=== PATIENT | male | born 1965 | race Hispanic/Latino ===

== ENCOUNTER 2017-05-29 19:54 | Inpatient (IN) | payer SELFPAY ==
[2017-05-29] MEDS ORDERED: Sodium Chloride 0.9% 1,000 ML IV STA (20:44)
[2017-05-29] MEDS ORDERED: Iohexol 240 (50 ml) PO ONE (20:45)
--- NOTE | 2017-05-29 20:48 | ED PDOC ---
HPI: Abdomen Time Seen by Provider: 05/29/17 20:40 Chief Complaint (Nursing): Abdominal Pain Chief Complaint (Provider): abdominal pain History Per: Patient History/Exam Limitations: no limitations Onset/Duration Of Symptoms: Days (6), Waxing/Waning Location Of Pain/Discomfort: RLQ, LLQ, Suprapubic Quality Of Discomfort: Sharp Associated Symptoms: Nausea, Vomiting Additional Complaint(s): 52 y/o male brought in by EMS for evaluation of intermittent lower abdominal pain x 6 days, worsening tonight. Patient notes diarrhea at onset of symptoms, which he thought was related to a stale sandwich he ate; but states symptoms improved over the weekend and then returned yesterday and tonight, with associated one vomiting episode prior to arrival. Denies fever, chest pain, shortness of breath, palpitations, urinary symptoms, changes in bowel movements. Past Medical History Reviewed: Historical Data, Nursing Documentation, Vital Signs Vital Signs: Last Vital Signs Temp 98.7 F 05/30/17 02:39 Pulse 104 H 05/30/17 02:39 Resp 20 05/30/17 02:39 BP 100/66 05/30/17 02:39 Pulse Ox 96 05/30/17 02:39 - Medical History PMH: HTN - Surgical History Surgical History: No Surg Hx - Family History Family History: States: No Known Family Hx - Social History Alcohol: > 2 Drinks/Day (5-6 beers daily) Drugs: Denies - Home Medications Home Medications: Ambulatory Orders Medication Instructions Recorded Allopurinol [Zyloprim] 100 mg PO DAILY 05/30/17 Lisinopril [Prinivil] mg PO DAILY 05/30/17 - Allergies Allergies/Adverse Reactions: Allergies Allergy/AdvReac Type Severity Reaction Status Date / Time No Known Allergies Allergy Verified 03/22/15 22:02 Review of Systems ROS Statement: Except As Marked, All Systems Reviewed And Found Negative Gastrointestinal: Positive for: Vomiting, Abdominal Pain Physical Exam - Reviewed Nursing Documentation Reviewed: Yes Vital Signs Reviewed: Yes - Physical Exam Appears: Positive for: Well, Non-toxic, Uncomfortable (shakey) Head Exam: Positive for: ATRAUMATIC, NORMAL INSPECTION, NORMOCEPHALIC Skin: Positive for: Normal Color Eye Exam: Positive for: Normal appearance ENT: Positive for: Normal ENT Inspection Cardiovascular/Chest: Positive for: Regular Rate, Rhythm Respiratory: Positive for: Normal Breath Sounds Gastrointestinal/Abdominal: Positive for: Bowel Sounds, Tenderness (rlq, suprapubic, llq), Distended Back: Positive for: Normal Inspection Extremity: Positive for: Normal ROM Neurologic/Psych: Positive for: Alert, Oriented - Laboratory Results Result Diagrams: 05/29/17 21:13 05/29/17 21:13 - ECG ECG: Positive for: Viewed By Me (reviewed by ED attending) ECG Rhythm: Positive for: Sinus Rhythm O2 Sat by Pulse Oximetry: 99 Pulse Ox Interpretation: Normal - Radiology X-Ray: Viewed By Me X-Ray Interpretation: No Acute Disease - Progress ED Course And Treament: labs, urine, CT abd/pelvis, IV fluids, IV zofran, IV morphine EXAM: CT Abdomen and Pelvis With Intravenous Contrast CLINICAL HISTORY: 52 years old, male; Pain; Abdominal pain; Generalized; Patient HX: See phys doc TECHNIQUE: Axial computed tomography images of the abdomen and pelvis with intravenous contrast. All CT scans at this facility use one or more dose reduction techniques, viz.: automated exposure control; ma/kV adjustment per patient size (including targeted exams where dose is matched to indication; i.e. head); or iterative reconstruction technique. Coronal and sagittal reformatted images were created and reviewed. CONTRAST: 100 mL of OMNI 300 administered intravenously. COMPARISON: No relevant prior studies available. FINDINGS: Lung bases: Mild atelectasis. ABDOMEN: Liver: Fatty infiltration. Gallbladder and bile ducts: No calcified stones. No ductal dilation. Pancreas: No ductal dilation. No mass. Spleen: No splenomegaly. Adrenals: No mass. Kidneys and ureters: No mass. No hydronephrosis. Stomach and bowel: Peripherally enhancing tubular structure along distal small bowel within lower abdomen/upper pelvis, roughly 5 cm in length. [id number] stranding within adjacent fat. Scattered diverticula within colon. No definite mural thickening. No obstruction. Appendix: Normal caliber. No inflammation. PELVIS: Bladder: Mild bladder wall thickening. Mild stranding within adjacent fat. Reproductive: Unremarkable as visualized. ABDOMEN and PELVIS: Intraperitoneal space: Trace free fluid within pelvis. No free air. Bones/joints: Mild degenerative changes of spine and hip joints. Degenerative changes of hip joints. No acute fracture. Soft tissues: Unremarkable. Vasculature: Unremarkable. No aneurysm. Lymph nodes: Several subcentimeter short axis mesenteric lymph nodes, nonspecific. IMPRESSION: 1. Findings compatible with Meckel's diverticulitis. 2. Probable cystitis, likely secondary to adjacent inflammation. 3. Incidental/non-acute findings are described above. IV cipro, IV flagyl dose ordered Case discussed with Dr. Singer, Hospitalist on-call, for admission. Case discussed with Dr. Ordaz, surgical assistant certified on-call, regarding consult Disposition - Clinical Impression Clinical Impression: Meckel's diverticulitis - Patient ED Disposition Is Patient to be Admitted: Yes - Disposition Disposition Time: 01:10 Condition: FAIR - Pt Status Changed To: Hospital Disposition Of: Inpatient - Admit Certification Admit to Inpatient:: After my assessment, the patient will require hospitalization for at least two midnights. This is because of the severity of symptoms shown, intensity of services needed, and/or the medical risk in this patient being treated as an outpatient. - POA Present On Arrival: None
[2017-05-29 21:25] LABS: BASO % 0.5 % (0.0-2.0); EOS % 0.2 % (0.0-4.0); HEMOGLOBIN 12.9 g/dL (12.0-18.0); LYMPH # 0.8 K/uL (1.0-4.3); LYMPH % 8.4 % (20.0-40.0); MEAN CELL VOLUME 91.6 fl (80.0-94.0); MEAN CORPUSCULAR HEMOGLOBIN 31.1 pg (27.0-31.0); MEAN PLATELET VOLUME 7.1 fl (7.2-11.7); MONO # 0.3 K/uL (0.0-0.8); MONO % 3.7 % (0.0-10.0); NEUT # 7.8 K/uL (1.8-7.0); NEUT % 87.2 % (50.0-75.0); PLATELET COUNT 264 K/uL (130-400); RBC 4.15 Mil/uL (4.40-5.90); RED CELL DISTRIBUTION WIDTH 12.2 % (11.5-14.5)
[2017-05-29 21:30] LABS: LIPASE 84 U/L (23-300)
[2017-05-29 21:55] LABS: BANDS 4 % (0-2); LYMPHOCYTE 7 % (20-50); MONOCYTE 1 % (0-10); NEUTROPHIL 88 % (42-75); PLATELET ESTIMATE NORMAL (NORMAL); TOTAL CELLS COUNTED 100
[2017-05-29] MEDS ORDERED: Iohexol 240 (50 ml) ONE (22:04)
[2017-05-29 22:42] LABS: ALBUMIN 4.3 g/dL (3.5-5.0); ALT/SGPT 33 U/L (21-72); AST/SGOT 50 U/L (17-59); BLOOD UREA NITROGEN 24 mg/dl (9-20); CALCIUM 9.7 mg/dL (8.4-10.2); GFR AFRICAN-AMERICAN > 60; GFR NON-AFRICAN AMERICAN > 60
[2017-05-29] MEDS ORDERED: Iohexol 300 100 ML IJ ONE (23:48)
--- NOTE | 2017-05-30 00:36 | CT ---
EXAM: CT Abdomen and Pelvis With Intravenous Contrast CLINICAL HISTORY: 52 years old, male; Pain; Abdominal pain; Generalized; Patient HX: See phys doc TECHNIQUE: Axial computed tomography images of the abdomen and pelvis with intravenous contrast. All CT scans at this facility use one or more dose reduction techniques, viz.: automated exposure control; ma/kV adjustment per patient size (including targeted exams where dose is matched to indication; i.e. head); or iterative reconstruction technique. Coronal and sagittal reformatted images were created and reviewed. CONTRAST: 100 mL of OMNI 300 administered intravenously. COMPARISON: No relevant prior studies available. FINDINGS: Lung bases: Mild atelectasis. ABDOMEN: Liver: Fatty infiltration. Gallbladder and bile ducts: No calcified stones. No ductal dilation. Pancreas: No ductal dilation. No mass. Spleen: No splenomegaly. Adrenals: No mass. Kidneys and ureters: No mass. No hydronephrosis. Stomach and bowel: Peripherally enhancing tubular structure along distal small bowel within lower abdomen/upper pelvis, roughly 5 cm in length. [id number] stranding within adjacent fat. Scattered diverticula within colon. No definite mural thickening. No obstruction. Appendix: Normal caliber. No inflammation. PELVIS: Bladder: Mild bladder wall thickening. Mild stranding within adjacent fat. Reproductive: Unremarkable as visualized. ABDOMEN and PELVIS: Intraperitoneal space: Trace free fluid within pelvis. No free air. Bones/joints: Mild degenerative changes of spine and hip joints. Degenerative changes of hip joints. No acute fracture. Soft tissues: Unremarkable. Vasculature: Unremarkable. No aneurysm. Lymph nodes: Several subcentimeter short axis mesenteric lymph nodes, nonspecific. IMPRESSION: 1. Findings compatible with Meckel's diverticulitis. 2. Probable cystitis, likely secondary to adjacent inflammation. 3. Incidental/non-acute findings are described above.
[2017-05-30] MEDS ORDERED: Ciprofloxacin 400mg/200ml D5W 400 MG/200 ML BAG IV ONE (01:09)
[2017-05-30] MEDS ORDERED: metroNIDAZOLE 500mg/100ml NS 100 ML IV STA (01:09)
--- NOTE | 2017-05-30 01:24 | CP.PCM.CON ---
<Terrance Ordaz - Last Filed: 05/30/17 02:08> History of Present Illness - History of Present Illness History of Present Illness: Surgery Consult note. Dr. Gordillo 52yo M with PMHx of HTN and Gout here for evaluation of abdominal pain. Patient report abdominal pain which started 5 days ago, described as crampy, sharp in quality, located initially in the LLQ now localized to the periumbilical and RLQ region. Symptoms associated with loose stools, dark black in color x7 episodes 5 days ago. Symptoms have been off and on and resolved on 2 days ago but returned this morning. Today, symptoms associated with dry heaving and 2 episodes of vomiting, non-bloody, non-bilious. He denies ever having similar symptoms prior to this episode. Denies any bloody bowel movements. No urinary complaints. Does report chills this morning, no fevers. No CP/SOB. No headaches. PMHx: HTN, Gout PSHx: none Family Hx: Father - DM, Social Hx: 5-6 drinks per day (beer/scotch); Rare cigar use (last use 8 months ago); Occasional Marijuana use NKDA Review of Systems - Review of Systems All systems: reviewed and no additional remarkable complaints except - Constitutional Constitutional: Chills. absent: Fever - Cardiovascular Cardiovascular: absent: Chest Pain, Dyspnea - Respiratory Respiratory: absent: Dyspnea - Gastrointestinal Gastrointestinal: Abdominal Pain, Belching, Bloating, Diarrhea, Nausea, Vomiting. absent: Hematemesis, Hematochezia - Genitourinary Genitourinary: absent: Difficulty Urinating, Dysuria Past Patient History - Past Social History Alcohol: > 2 Drinks/Day (5-6 beers daily) Drugs: Denies - CARDIAC Hx Hypertension: Yes - PSYCHIATRIC Hx Substance Use: No Meds Allergies/Adverse Reactions: Allergies Allergy/AdvReac Type Severity Reaction Status Date / Time No Known Allergies Allergy Verified 03/22/15 22:02 - Medications Medications: Current Medications Ciprofloxacin (Cipro 400mg/200ml Dsw) 400 mg in 200 mls @ 200 mls/hr IV ONCE ONE PRN Reason: Protocol Stop: 05/30/17 02:08 Metronidazole (Flagyl 500mg/100ml Ns) 100 mls @ 100 mls/hr IV STAT STA PRN Reason: Protocol Stop: 05/30/17 02:08 Physical Exam - Constitutional Appears: Well, Non-toxic, No Acute Distress - Head Exam Head Exam: ATRAUMATIC, NORMAL INSPECTION, NORMOCEPHALIC - Eye Exam Eye Exam: EOMI, Normal appearance - ENT Exam ENT Exam: Mucous Membranes Moist - Respiratory Exam Respiratory Exam: NORMAL BREATHING PATTERN. absent: Accessory Muscle Use, Wheezes, Respiratory Distress - Cardiovascular Exam Cardiovascular Exam: RRR. absent: JVD - GI/Abdominal Exam GI & Abdominal Exam: Distended. absent: Rebound Additional comments: Right lower quadrant tenderness to palpation. Periumbilical region, tenderness to palpation No palpable mass noted. Moderate distention. Rectal exam with no stool in rectal vault. No palpable nodularities. No gross blood noted. Hemoccult card sent to lab. - Extremities Exam Extremities exam: Positive for: normal inspection. Negative for: calf tenderness - Neurological Exam Neurological exam: Alert, Oriented x3 - Psychiatric Exam Psychiatric exam: Normal Affect, Normal Mood - Skin Skin Exam: Dry, Intact, Normal Color, Warm Results - Vital Signs Recent Vital Signs: Last Vital Signs Temp 98.0 F 05/29/17 19:56 Pulse 71 05/29/17 19:56 Resp 16 05/29/17 19:56 BP 122/76 05/29/17 19:56 Pulse Ox 99 05/30/17 00:45 - Labs Result Diagrams: 05/29/17 21:13 05/29/17 21:13 Labs: Laboratory Results - last 24 hr 05/29/17 05/29/17 05/29/17 21:13 21:13 21:13 WBC 9.0 RBC 4.15 L Hgb 12.9 Hct 38.1 MCV 91.6 MCH 31.1 H MCHC 34.0 RDW 12.2 Plt Count 264 MPV 7.1 L Neut % (Auto) 87.2 H Lymph % (Auto) 8.4 L [place] % (Auto) 3.7 Eos % (Auto) 0.2 Baso % (Auto) 0.5 Neut # (Auto) 7.8 H Lymph # (Auto) 0.8 L [place] # (Auto) 0.3 Eos # (Auto) 0.0 Baso # (Auto) 0.0 Neutrophils % (Manual) 88 H Band Neutrophils % 4 H Lymphocytes % (Manual) 7 L Monocytes % (Manual) 1 Platelet Estimate Normal RBC Morphology Normal Sodium 136 Potassium 5.1 H Chloride 95 L Carbon Dioxide 24 Anion Gap 22 H BUN 24 H Creatinine 1.1 Est GFR ( Amer) > 60 Est GFR (Non-Af Amer) > 60 Random Glucose 141 H Calcium 9.7 Total Bilirubin 1.3 AST 50 ALT 33 Alkaline Phosphatase 63 Total Protein 8.4 H Albumin 4.3 Globulin 4.2 H Albumin/Globulin Ratio 1.0 Lipase 84 Alcohol, Quantitative < 10 Assessment & Plan - Assessment and Plan (Free Text) Assessment: 52yo M with abdominal pain. Possible Meckel's Diverticulitis Plan: - NPO except meds - IVF - IV Abx - Pain management - Anti-emetics as needed - Strict I and O - f/u repeat AM labs - We will reevaluate patient in the AM and make further recommendations as we follow clinical status Further recs as per Dr. Duy Ordaz PGY1 surgery pager: [phone] <Gomez Maria - Last Filed: 05/30/17 09:37> Meds - Medications Medications: Current Medications Acetaminophen (Tylenol 325mg Tab) 650 mg PO Q6 PRN PRN Reason: Fever >100.4 F Sodium Chloride (Sodium Chloride 0.9%) 1,000 mls @ 125 mls/hr IV .Q8H ANDIE Stop: 05/31/17 02:03 Last Admin: 05/30/17 03:08 Dose: 125 mls/hr Piperacillin Sod/Tazobactam (Sod 3.375 gm/ Sodium Chloride) 100 mls @ 100 mls/ hr IVPB Q6 ANDIE PRN Reason: Protocol Last Admin: 05/30/17 04:40 Dose: 100 mls/hr Sodium Chloride (Sodium Chloride 0.9%) 1,000 mls @ 1,000 mls/hr IV .Q1H ANDIE Stop: 05/31/17 07:25 Last Admin: 05/30/17 08:37 Dose: 1,000 mls/hr Morphine Sulfate (Morphine) 4 mg IVP Q4 PRN PRN Reason: Pain, moderate (4-7) Ondansetron HCl (Zofran Inj) 4 mg IVP Q6 PRN PRN Reason: Nausea/Vomiting Results - Vital Signs Recent Vital Signs: Last Vital Signs Temp 98.4 F 05/30/17 08:17 Pulse 77 05/30/17 08:17 Resp 20 05/30/17 08:17 BP 101/67 05/30/17 08:17 Pulse Ox 97 05/30/17 08:17 - Labs Result Diagrams: 05/30/17 05:55 05/30/17 05:55 Labs: Laboratory Results - last 24 hr 05/29/17 05/29/17 05/29/17 21:13 21:13 21:13 WBC 9.0 RBC 4.15 L Hgb 12.9 Hct 38.1 MCV 91.6 MCH 31.1 H MCHC 34.0 RDW 12.2 Plt Count 264 MPV 7.1 L Neut % (Auto) 87.2 H Lymph % (Auto) 8.4 L [place] % (Auto) 3.7 Eos % (Auto) 0.2 Baso % (Auto) 0.5 Neut # (Auto) 7.8 H Lymph # (Auto) 0.8 L [place] # (Auto) 0.3 Eos # (Auto) 0.0 Baso # (Auto) 0.0 Neutrophils % (Manual) 88 H Band Neutrophils % 4 H Lymphocytes % (Manual) 7 L Monocytes % (Manual) 1 Platelet Estimate Normal RBC Morphology Normal PT INR APTT Sodium 136 Potassium 5.1 H Chloride 95 L Carbon Dioxide 24 Anion Gap 22 H BUN 24 H Creatinine 1.1 Est GFR ( Amer) > 60 Est GFR (Non-Af Amer) > 60 Random Glucose 141 H Lactic Acid Calcium 9.7 Total Bilirubin 1.3 AST 50 ALT 33 Alkaline Phosphatase 63 Total Protein 8.4 H Albumin 4.3 Globulin 4.2 H Albumin/Globulin Ratio 1.0 Lipase 84 Urine Color Urine Clarity Urine pH Ur Specific [place] Urine Protein Urine Glucose (UA) Urine Ketones Urine Blood Urine Nitrate Urine Bilirubin Urine Urobilinogen Ur Leukocyte Esterase Urine RBC (Auto) Urine Microscopic WBC Ur Squamous Epith Cells Stool Occult Blood Alcohol, Quantitative < 10 05/30/17 05/30/17 05/30/17 01:40 01:40 01:56 WBC RBC Hgb Hct MCV MCH MCHC RDW Plt Count MPV Neut % (Auto) Lymph % (Auto) [place] % (Auto) Eos % (Auto) Baso % (Auto) Neut # (Auto) Lymph # (Auto) [place] # (Auto) Eos # (Auto) Baso # (Auto) Neutrophils % (Manual) Band Neutrophils % Lymphocytes % (Manual) Monocytes % (Manual) Platelet Estimate RBC Morphology PT 13.0 INR 1.2 APTT 27.7 Sodium Potassium Chloride Carbon Dioxide Anion Gap BUN Creatinine Est GFR ( Amer) Est GFR (Non-Af Amer) Random Glucose Lactic Acid 1.5 Calcium Total Bilirubin AST ALT Alkaline Phosphatase Total Protein Albumin Globulin Albumin/Globulin Ratio Lipase Urine Color Urine Clarity Urine pH Ur Specific [place] Urine Protein Urine Glucose (UA) Urine Ketones Urine Blood Urine Nitrate Urine Bilirubin Urine Urobilinogen Ur Leukocyte Esterase Urine RBC (Auto) Urine Microscopic WBC Ur Squamous Epith Cells Stool Occult Blood Negative Alcohol, Quantitative 05/30/17 05/30/17 05/30/17 03:38 05:55 05:55 WBC 14.9 H D RBC 3.80 L Hgb 11.7 L Hct 35.3 MCV 92.7 MCH 30.6 MCHC 33.0 RDW 12.3 Plt Count 248 MPV Neut % (Auto) Lymph % (Auto) [place] % (Auto) Eos % (Auto) Baso % (Auto) Neut # (Auto) Lymph # (Auto) [place] # (Auto) Eos # (Auto) Baso # (Auto) Neutrophils % (Manual) Band Neutrophils % Lymphocytes % (Manual) Monocytes % (Manual) Platelet Estimate RBC Morphology PT INR APTT Sodium 136 Potassium 5.6 H Chloride 95 L Carbon Dioxide 23 Anion Gap 24 H BUN 27 H Creatinine 1.8 H Est GFR ( Amer) 48 Est GFR (Non-Af Amer) 40 Random Glucose 138 H Lactic Acid Calcium 8.9 Total Bilirubin 1.5 H AST 24 ALT 37 Alkaline Phosphatase 51 Total Protein 7.8 Albumin 3.9 Globulin 3.9 Albumin/Globulin Ratio 1.0 Lipase Urine Color Yellow Urine Clarity Slighty-cloudy Urine pH 5.0 Ur Specific [place] > 1.060 H Urine Protein Negative Urine Glucose (UA) Neg Urine Ketones Negative Urine Blood Negative Urine Nitrate Negative Urine Bilirubin Negative Urine Urobilinogen 0.2-1.0 Ur Leukocyte Esterase Neg Urine RBC (Auto) < 1 Urine Microscopic WBC < 1 Ur Squamous Epith Cells < 1 Stool Occult Blood Alcohol, Quantitative Assessment & Plan - Assessment and Plan (Free Text) Plan: OR 05/30 at 2pm SAMEER Rodriguez <Lopez Gordillo B - Last Filed: 05/31/17 15:22> Meds - Medications Medications: Current Medications Acetaminophen (Tylenol 325mg Tab) 650 mg PO Q6 PRN PRN Reason: Fever >100.4 F Lactated Ringer's (Lactated Ringer's) 1,000 mls @ 999 mls/hr IV .Q1H1M ANDIE Lactated Ringer's (Lactated Ringer's) 1,000 mls @ 150 mls/hr IV .Q6H40M ANDIE Sodium Chloride (Sodium Chloride 0.9%) 1,000 mls @ 150 mls/hr IV .Q6H40M ANDIE Stop: 05/31/17 20:10 Last Admin: 05/31/17 08:00 Dose: 150 mls/hr Piperacillin Sod/Tazobactam (Sod 3.375 gm/ Sodium Chloride) 100 mls @ 100 mls/ hr IVPB Q6H ANDIE PRN Reason: Protocol Last Admin: 05/31/17 12:30 Dose: 100 mls/hr Morphine Sulfate (Morphine) 4 mg IVP Q4 PRN PRN Reason: Pain, moderate (4-7) Last Admin: 05/31/17 12:30 Dose: 4 mg Ondansetron HCl (Zofran Inj) 4 mg IVP Q6 PRN PRN Reason: Nausea/Vomiting Results - Vital Signs Recent Vital Signs: Last Vital Signs Temp 99.6 F 05/31/17 08:34 Pulse 91 H 05/31/17 08:34 Resp 20 05/31/17 08:34 BP 124/80 05/31/17 08:34 Pulse Ox 99 05/31/17 08:34 - Labs Result Diagrams: 05/31/17 09:02 05/31/17 09:02 Labs: Laboratory Results - last 24 hr 05/31/17 05/31/17 09:02 09:02 WBC 11.1 H RBC 3.37 L Hgb 10.7 L Hct 31.2 L MCV 92.6 MCH 31.6 H MCHC 34.1 RDW 12.6 Plt Count 236 Sodium 144 Potassium 3.8 Chloride 106 Carbon Dioxide 23 Anion Gap 19 BUN 20 Creatinine 1.4 Est GFR ( Amer) > 60 Est GFR (Non-Af Amer) 53 Random Glucose 122 H Calcium 8.2 L Total Bilirubin 0.8 AST 40 ALT 34 Alkaline Phosphatase 40 Total Protein 6.5 Albumin 3.1 L D Globulin 3.4 Albumin/Globulin Ratio 0.9 L Attending/Attestation - Attestation I have personally seen and examined this patient.: Yes I have fully participated in the care of the patient.: Yes I have reviewed all pertinent clinical information: Yes Notes (Text): Pt was seen and examined at bedside Agree with above note and assessment Pt with lower abdominal pain and tenderness Abdomen distended Labs and radiology reviewed Ass: Meckel's diverticulitis with leucocytosis IV antibiotics NPO, IVF OR for Lap Diverticulectomy and possible bowel resection Consent Plan d.w pt in detail Risk and benefit explained in detail.
--- NOTE | 2017-05-30 01:36 | CP.PCM.HP ---
History of Present Illness - History of Present Illness History of Present Illness: PMD: Not on staf Chief complaint: Abdominal pain The patient was seen and examined in the ED HPI: 52 years old male with hx of HTN and Gout, comes with a 6 days hx of intermittent abdominal pain. The pain is located at the LLQ then radiates across the pelvis to the right lower quadrant, becoming continuous and more severe on the day of admission. It was not relieved with Ibuprofen and associated with nausea, vomiting once, rigors, lightheadeedness, dizziness, diarrhea at the inception but no dysuria PMH: HTN; Gout: Childhood Asghma PSH: Denies SH: No illegal drug, Smokes Cigars, no cigarettes, Drinks > 2 drinks /day; live alone; FH: States: No Known Family Hx Allergies: States NKDA Medication: Reviewed Present on Admission - Present on Admission Any Indicators Present on Admission: No History of DVT/PE: No History of Uncontrolled Diabetes: No Urinary Catheter: No Decubitus Ulcer Present: No Review of Systems - Constitutional Constitutional: Chills, Headache. absent: Fatigue, Fever, Malaise - EENT Eyes: Requires Corrective Lenses. absent: Diplopia, Floaters, Itchy Eyes, Loss of Peripheral Vision, Loss of Vision Ears: Dizziness. absent: Decreased Hearing, Ear Discharge, Tinnitus Nose/Mouth/Throat: absent: Epistaxis, Nasal Congestion, Nasal Discharge, Sinus Pain, Sinus Pressure - Cardiovascular Cardiovascular: absent: Chest Pain, Dyspnea, Edema - Respiratory Respiratory: Excessive Mucous Production. absent: Cough, Dyspnea - Gastrointestinal Gastrointestinal: Cramping, Diarrhea, Nausea, Vomiting - Genitourinary Genitourinary: absent: Flank Pain, Hematuria - Musculoskeletal Musculoskeletal: absent: Abnormal Gait, Back Pain, Muscle Weakness - Integumentary Integumentary: absent: Pruritus, Rash, Skin Ulcer, Sores, Striae, Swelling - Neurological Neurological: Abnormal Movements, Dizziness, Headaches. absent: Confusion - Psychiatric Psychiatric: absent: Anxiety, Depression, Panic Attacks - Endocrine Endocrine: absent: Palpitations, Polydipsia, Polyphagia, Polyuria - Hematologic/Lymphatic Hematologic: absent: Easy Bleeding, Easy Bruising Past Patient History - Past Medical History & Family History Past Medical History?: Yes - Past Social History Smoking Status: Heavy Smoker > 10 Cigarettes Daily Chewing Tobacco Use: No Cigar Use: No Alcohol: > 2 Drinks/Day (5-6 beers daily) Drugs: Denies, Inhalants Home Situation {Lives}: Alone - CARDIAC Hx Hypertension: Yes - PULMONARY Hx Respiratory Disorders: No - NEUROLOGICAL Hx Neurological Disorder: No - HEENT Hx HEENT Problems: No - HEMATOLOGICAL/ONCOLOGICAL Hx Blood Disorders: No - INTEGUMENTARY Hx Dermatological Problems: No - MUSCULOSKELETAL/RHEUMATOLOGICAL Hx Musculoskeletal Disorders: No - GASTROINTESTINAL Hx Gastrointestinal Disorders: No - GENITOURINARY/GYNECOLOGICAL Hx Genitourinary Disorders: No - PSYCHIATRIC Hx Psychophysiologic Disorder: No Hx Substance Use: No - ANESTHESIA Hx Anesthesia: No Meds Allergies/Adverse Reactions: Allergies Allergy/AdvReac Type Severity Reaction Status Date / Time No Known Allergies Allergy Verified 03/22/15 22:02 Physical Exam - Constitutional Appears: No Acute Distress - Head Exam Head Exam: ATRAUMATIC, NORMAL INSPECTION, NORMOCEPHALIC - Eye Exam Eye Exam: EOMI, Normal appearance Pupil Exam: NORMAL ACCOMODATION, PERRL - ENT Exam ENT Exam: Mucous Membranes Moist, Normal Exam - Neck Exam Neck exam: Positive for: Full Rom, Normal Inspection. Negative for: Lymphadenopathy, Tenderness - Respiratory Exam Respiratory Exam: Clear to Auscultation Bilateral. absent: Rales, Rhonchi, Wheezes - Cardiovascular Exam Cardiovascular Exam: REGULAR RHYTHM, RRR, +S1, +S2 - GI/Abdominal Exam Additional comments: Flat, Soft, +ve bowel sounds, Guarding moderate rebound tenderness - Rectal Exam Rectal Exam: Deferred - Extremities Exam Extremities exam: Positive for: full ROM, normal inspection. Negative for: calf tenderness, pedal edema, tenderness - Back Exam Back exam: NORMAL INSPECTION. absent: CVA tenderness (L), CVA tenderness (R) - Neurological Exam Neurological exam: Oriented x3, Reflexes Normal - Psychiatric Exam Psychiatric exam: Normal Affect, Normal Mood - Skin Skin Exam: Dry, Intact, Normal Color, Warm Results - Vital Signs Recent Vital Signs: Last Vital Signs Temp 98.0 F 05/29/17 19:56 Pulse 71 05/29/17 19:56 Resp 16 05/29/17 19:56 BP 122/76 05/29/17 19:56 Pulse Ox 99 05/30/17 00:45 - Labs Result Diagrams: 05/29/17 21:13 05/29/17 21:13 Labs: Laboratory Results - last 24 hr 05/29/17 05/29/17 05/29/17 21:13 21:13 21:13 WBC 9.0 RBC 4.15 L Hgb 12.9 Hct 38.1 MCV 91.6 MCH 31.1 H MCHC 34.0 RDW 12.2 Plt Count 264 MPV 7.1 L Neut % (Auto) 87.2 H Lymph % (Auto) 8.4 L [place] % (Auto) 3.7 Eos % (Auto) 0.2 Baso % (Auto) 0.5 Neut # (Auto) 7.8 H Lymph # (Auto) 0.8 L [place] # (Auto) 0.3 Eos # (Auto) 0.0 Baso # (Auto) 0.0 Neutrophils % (Manual) 88 H Band Neutrophils % 4 H Lymphocytes % (Manual) 7 L Monocytes % (Manual) 1 Platelet Estimate Normal RBC Morphology Normal Sodium 136 Potassium 5.1 H Chloride 95 L Carbon Dioxide 24 Anion Gap 22 H BUN 24 H Creatinine 1.1 Est GFR ( Amer) > 60 Est GFR (Non-Af Amer) > 60 Random Glucose 141 H Calcium 9.7 Total Bilirubin 1.3 AST 50 ALT 33 Alkaline Phosphatase 63 Total Protein 8.4 H Albumin 4.3 Globulin 4.2 H Albumin/Globulin Ratio 1.0 Lipase 84 Alcohol, Quantitative < 10 - Impressions Impression: NSR 96/min - Imaging and Cardiology CT scan - abdomen Status: Report reviewed by me Additional comment: EXAM: CT Abdomen and Pelvis With Intravenous Contrast FINDINGS: Lung bases: Mild atelectasis. ABDOMEN: Liver: Fatty infiltration. Gallbladder and bile ducts: No calcified stones. No ductal dilation. Pancreas: No ductal dilation. No mass. Spleen: No splenomegaly. Adrenals: No mass. Kidneys and ureters: No mass. No hydronephrosis. Stomach and bowel: Peripherally enhancing tubular structure along distal small bowel within lower abdomen/upper pelvis, roughly 5 cm in length. [id number]-af-[id number] stranding within adjacent fat. Scattered diverticula within colon. No definite mural thickening. No obstruction. Appendix: Normal caliber. No inflammation. PELVIS: Bladder: Mild bladder wall thickening. Mild stranding within adjacent fat. Reproductive: Unremarkable as visualized. ABDOMEN and PELVIS: Intraperitoneal space: Trace free fluid within pelvis. No free air. Bones/joints: Mild degenerative changes of spine and hip joints. Degenerative changes of hip joints. No acute fracture. Soft tissues: Unremarkable. Vasculature: Unremarkable. No aneurysm. Lymph nodes: Several subcentimeter short axis mesenteric lymph nodes, nonspecific. IMPRESSION: 1. Findings compatible with Meckel's diverticulitis. 2. Probable cystitis, likely secondary to adjacent inflammation. 3. Incidental/non-acute findings are described above. Chest x-ray Status: Image reviewed by me Additional comment: No infiltrate Increased cardiac silhouette Assessment & Plan - Assessment and Plan (Free Text) Assessment: #. Meckel's Diverticulitis #. Cystitis #. Dehydration #. Hyperkalemia Plan: 52 years old male with hx of HTN and Gout, comes with a 6 days hx of intermittent abdominal pain. The pain is located at the LLQ then radiates across the pelvis to the right lower quadrant, becoming continuous and more severe on the day of admission. #. Meckel's Diverticulitis - Consult Surgery Dr Gordillo - NPO - Zosyn - IV Fluid - Pain management #. Cystitis from the adjacent inflammation - Zosyn - Follow UA - IV Fluids - follow Renal labs #. Hyperkalemia - Follow electrolytes #. DVT prophylaxis with SCD #. Code Status: Full - Date & Time Date: 05/30/17 Time: 01:36
[2017-05-30 01:52] LABS: INR 1.2 (0.9-1.2); PARTIAL THROMBOPLASTIN TIME 27.7 Seconds (25.6-37.1)
[2017-05-30] MEDS ORDERED: Ciprofloxacin 400mg/200ml D5W 400 MG/200 ML BAG IVPB ONE (01:56)
[2017-05-30] MEDS: Sodium Chloride 0.9% 1,000 ML IV SCH ×3 (03:08→22:48)
[2017-05-30 03:44] LABS: SQUAMOUS EPITHIAL < 1 /hpf (0-5); URINE BILIRUBIN NEGATIVE (NEGATIVE); URINE BLOOD NEGATIVE (NEGATIVE); URINE CLARITY SLIGHTY-CLOUDY (Clear); URINE COLOR YELLOW (YELLOW); URINE GLUCOSE (UA) NEG (Normal); URINE LEUKOCYTE ESTERASE NEG Leu/uL (Negative); URINE PROTEIN NEGATIVE (NEGATIVE); URINE UROBILINOGEN 0.2-1.0 mg/dL (0.2-1.0)
[2017-05-30] MEDS: Piperacillin/Tazobact 3.375 GM in Sodium Chloride 0.9% 100 ML IVPB SCH ×3 (04:40→19:20)
[2017-05-30 06:39] LABS: HEMOGLOBIN 11.7 g/dL (12.0-18.0); MEAN CELL VOLUME 92.7 fl (80.0-94.0); MEAN CORPUSCULAR HEMOGLOBIN 30.6 pg (27.0-31.0); RBC 3.8 Mil/uL (4.40-5.90); RED CELL DISTRIBUTION WIDTH 12.3 % (11.5-14.5); WHITE BLOOD COUNT 14.9 K/uL (4.8-10.8)
[2017-05-30 06:53] LABS: ALBUMIN 3.9 g/dL (3.5-5.0); CALCIUM 8.9 mg/dL (8.4-10.2)
[2017-05-30] MEDS ORDERED: Insulin Regular 100 units/ml IV STA (07:26)
[2017-05-30] MEDS ORDERED: Dextrose 50% SYRINGE Inj (50 ml) IVP ONE (07:27)
[2017-05-30] MEDS ORDERED: Sodium Chloride 0.9% 1,000 ML IV SCH (07:30)
--- NOTE | 2017-05-30 07:40 | CARD ---
APPROVED REPORT EKG Measurement Heart [id number] <Conclusion> Sinus rhythm with occasional premature ventricular complexes Possible Left atrial enlargement Nonspecific T wave abnormality Abnormal ECG
[2017-05-30 11:07] LABS: GFR AFRICAN-AMERICAN > 60; GFR NON-AFRICAN AMERICAN 53
[2017-05-30 11:15] LABS: BLOOD UREA NITROGEN 24 mg/dl (9-20); CALCIUM 8.6 mg/dL (8.4-10.2)
--- NOTE | 2017-05-30 12:31 | RAD ---
HISTORY: admit COMPARISON: No prior. FINDINGS: LUNGS: No active pulmonary disease. PLEURA: No significant pleural effusion identified, no pneumothorax apparent. CARDIOVASCULAR: Normal. OSSEOUS STRUCTURES: No significant abnormalities. VISUALIZED UPPER ABDOMEN: Normal. OTHER FINDINGS: None. IMPRESSION: No active disease.
[2017-05-30] MEDS ORDERED: Succinylcholine 200 mg/10 ml Inj IV ONE (13:45)
[2017-05-30] MEDS ORDERED: Propofol 10 mg/ml Inj (20 ML) ONE ×2 (13:45→13:49)
[2017-05-30] MEDS ORDERED: Rocuronium 10 mg/ml (5 ml) ONE ×2 (13:45→17:09)
[2017-05-30] MEDS ORDERED: Lidocaine 4% (Laryng-O-Jet) Kit MM ONE (13:46)
[2017-05-30] MEDS ORDERED: Bupivacaine 0.5% Inj(30mL) ONE (14:12)
[2017-05-30] MEDS ORDERED: Lidocaine Hydrochloride 1% 20 ML ONE (14:12)
[2017-05-30] MEDS ORDERED: Midazolam 2 MG/2 ML VIAL ONE (14:28)
[2017-05-30] MEDS ORDERED: ceFAZolin IV 1 gm in Dextrose 2 GM/100 ML BAG IVPB ONE (14:35)
[2017-05-30] MEDS ORDERED: Lactated Ringer's 1,000 ML IV ONE ×6 (14:35→19:15)
[2017-05-30] MEDS ORDERED: Lidocaine 1% (10 ml) Inj IV ONE ×2 (14:55)
[2017-05-30] MEDS ORDERED: Bupivacaine 0.5% 50 ML IJ ONE ×2 (14:55)
[2017-05-30] MEDS ORDERED: Neostigmine 1:1000 (1 mg/ml) Inj ONE (16:08)
--- NOTE | 2017-05-30 18:40 | PCM.SURG1 ---
Surgeon's Initial Post Op Note - Surgeon's Notes Surgeon: Duy Choir Teacher: Crow, PGY2. Harmony, PGY1. Pre-Operative Diagnosis: Meckels diverticulitis Operative Findings: Perfortated meckels diverticulitis, fibrinous exudates Post-Operative Diagnosis: Perforated meckels diverticulitis Operation Performed: Laparoscopic small bowel resection, with anastomosis Specimen/Specimens Removed: Meckels diverticulum attached to portion of small bowel Estimated Blood Loss: EBL {In ML}: 20 Date of Surgery/Procedure: 05/30/17 Time of Surgery/Procedure: 15:00
[2017-05-30] MEDS ORDERED: Lactated Ringer's 1,000 ML IV SCH (18:45)
--- NOTE | 2017-05-30 21:29 | OP ---
PROCEDURE DATE: 05/30/2017 PREOPERATIVE DIAGNOSES: 1. Meckel's diverticulitis. 2. Abdominal distention and leukocytosis. POSTOPERATIVE DIAGNOSES: 1. Perforated phlegmonous Meckel's diverticulitis. 2. Extensive postinfectious and postinflammatory adhesion in the lower part of the abdomen. 3. Extensive interloop pelvic perihepatic and all over abdomen multiple abscesses. PROCEDURE DONE: 1. Laparoscopic Meckel's diverticulectomy. 2. Laparoscopic small bowel resection. 3. Laparoscopic extensive lysis of adhesion. 4. Laparoscopic drainage of pelvic perihepatic interloop multiple abscesses. SURGEON: Lopez Gordillo MD DRAPERY ROD ASSEMBLER: Giovanni Maria, PGY-2 resident and Woody Antunez, PGY-1 resident. TYPE OF ANESTHESIA: General endotracheal tube anesthesia. ESTIMATED BLOOD LOSS: Around 50 mL. DRAIN: A 19-[place] Ron drain was placed. COMPLICATIONS: None. PATHOLOGY: 1. Meckel diverticulum was sent to the pathology. 2. Part of the small bowel was sent to the pathology. 3. Pus was sent for the culture and sensitivity and gram stain. INTRAOPERATIVE FINDINGS: The patient had perforated phlegmonous Meckel's diverticulitis with extensive postinfectious and post-inflammatory adhesion of the lower abdomen. The patient had a multiple interloop abscesses, pelvic abscess, perihepatic collection and overall abdomen, the patient has a multiple abscesses and it took approximately 100 to 120 minute extra for the routine procedure. DESCRIPTION OF PROCEDURE: On intraoperative steps, this 52-year-old male, who was diagnosed with Meckel's diverticulitis and the patient had leukocytosis as well as abdominal distention and the patient was consented for laparoscopic Meckel diverticulectomy, possible bowel resection, possible ostomy, brought to the OR, placed supine on the operating table. After induction of the anesthesia, the NG tube and Vásquez catheter was placed, and the abdomen was prepped and draped in the usual sterile fashion. The supraumbilical transverse incision was made after incising the skin and subcutaneous tissue, the fascia was incised. Peritoneal cavity was entered, Pneumo was created. Another 5-mm port was placed in the left lower quadrant, 12-mm port was placed in left flank and another 5-mm port was placed in the right flank and after the grasper and dissector were introduced, the patient found to have extensive inflammation and multiple interloop abscesses as well as multiple adhesions in the lower abdomen. First, [id number]-bk-[id number] lysis of adhesion was done and pelvic as well as interloop abscess was drained. After extensive lysis of adhesion for approximately half an hour to 45 minutes, the Meckel diverticulum was identified and the dissection was carried down to identify the base of the Meckel's diverticulum and it appeared to be extremely adhered to the small bowel. Now, the small bowel very close to Meckel's diverticulum was completely resected, and it was sent off the table for the pathology. Now, the small bowel was exteriorized and part of the small bowel that was very close to the Meckel's diverticulum was also resected further on the both side. After that, the [id number]-dw-[id number] anastomosis was done and small bowel was placed back into the peritoneal cavity. Pneumo was recreated. Now approximately 3 to 4 L of fluid was used to complete the suction irrigation of the peritoneal cavity in the right upper quadrant, left upper quadrant, right flank, left flank, and the pelvic area. All the fluid was suctioned out. A 19-[place] Ron drain was placed. The specimen retrieval site was closed with #1 loop PDS continuous suture as well as #1 Prolene interrupted suture. Umbilical port site was closed in a 2 layers with 0 Vicryl interrupted suture, skin with 4-0 Monocryl, and dry sterile dressing was applied. The patient tolerated the procedure well. Count of instruments and gauze was correct. The drain was secured to the skin. The patient was extubated in the OR and sent to the Postanesthesia Care Unit in stable condition. Lopez Gordillo MD MARCIAL
[2017-05-31] MEDS: Piperacillin/Tazobact 3.375 GM in Sodium Chloride 0.9% 100 ML IVPB SCH ×4 (00:51→18:31)
[2017-05-31] MEDS: Sodium Chloride 0.9% 1,000 ML IV SCH ×3 (02:55→17:07)
[2017-05-31 09:18] LABS: HEMOGLOBIN 10.7 g/dL (12.0-18.0); MEAN CELL VOLUME 92.6 fl (80.0-94.0); MEAN CORPUSCULAR HEMOGLOBIN 31.6 pg (27.0-31.0); MEAN CORPUSCULAR HGB CONC 34.1 g/dL (33.0-37.0); RBC 3.37 Mil/uL (4.40-5.90); RED CELL DISTRIBUTION WIDTH 12.6 % (11.5-14.5); WHITE BLOOD COUNT 11.1 K/uL (4.8-10.8)
[2017-05-31 09:49] LABS: ALB/GLOB RATIO 0.9 (1.0-2.1); ALBUMIN 3.1 g/dL (3.5-5.0); ALT/SGPT 34 U/L (21-72); AST/SGOT 40 U/L (17-59); BLOOD UREA NITROGEN 20 mg/dl (9-20); CALCIUM 8.2 mg/dL (8.4-10.2); GFR AFRICAN-AMERICAN > 60; GFR NON-AFRICAN AMERICAN 53
--- NOTE | 2017-05-31 17:59 | CP.PCM.PN ---
Subjective - Date & Time of Evaluation Date of Evaluation: 05/31/17 Time of Evaluation: 10:00 - Subjective Subjective: General Surgery Progress Note- Dr. Gordillo 52 y.o male POD#1 laparoscopic small bowel resection with anastomosis secondary to perforated Meckel's diverticulitis. Patient seen resting comfortably in bed, in NAD, and AA0x3. Patient denies acute overnight events. Patient reports pain and tenderness to the abdomen, well controlled with medication. Denies n/v/sob/ cp/chills or fever Objective - Vital Signs/Intake and Output Vital Signs (last 24 hours): Temp Pulse Resp BP Pulse Ox 98.2 F 123 H 20 123/88 94 L 05/31/17 16:33 05/31/17 16:33 05/31/17 16:33 05/31/17 16:33 05/31/17 16:33 Intake and Output: 05/31/17 05/31/17 06:59 18:59 Intake Total 700 Output Total 405 Balance 295 - Medications Medications: Current Medications Acetaminophen (Tylenol 325mg Tab) 650 mg PO Q6 PRN PRN Reason: Fever >100.4 F Enoxaparin Sodium (Lovenox) 40 mg SC DAILY [facility]IE PRN Reason: Protocol Lactated Ringer's (Lactated Ringer's) 1,000 mls @ 999 mls/hr IV .Q1H1M ANDIE Lactated Ringer's (Lactated Ringer's) 1,000 mls @ 150 mls/hr IV .Q6H40M ANDIE Sodium Chloride (Sodium Chloride 0.9%) 1,000 mls @ 150 mls/hr IV .Q6H40M ANDIE Stop: 05/31/17 20:10 Last Admin: 05/31/17 17:07 Dose: Not Given Piperacillin Sod/Tazobactam (Sod 3.375 gm/ Sodium Chloride) 100 mls @ 100 mls/ hr IVPB Q6H [facility]IE PRN Reason: Protocol Last Admin: 05/31/17 12:30 Dose: 100 mls/hr Morphine Sulfate (Morphine) 4 mg IVP Q4 PRN PRN Reason: Pain, moderate (4-7) Last Admin: 05/31/17 12:30 Dose: 4 mg Ondansetron HCl (Zofran Inj) 4 mg IVP Q6 PRN PRN Reason: Nausea/Vomiting - Labs Labs: 05/31/17 09:02 05/31/17 09:02 PT 13.0 Seconds (9.8-13.1) 05/30/17 01:40 INR 1.2 (0.9-1.2) 05/30/17 01:40 APTT 27.7 Seconds (25.6-37.1) 05/30/17 01:40 - Constitutional Appears: Well, Non-toxic, No Acute Distress - Head Exam Head Exam: NORMOCEPHALIC - ENT Exam Additional comments: ngt tube intact - Respiratory Exam Respiratory Exam: NORMAL BREATHING PATTERN - Cardiovascular Exam Cardiovascular Exam: REGULAR RHYTHM - GI/Abdominal Exam GI & Abdominal Exam: Distended Additional comments: Pain with palpation to surgical site Dressing is clean dry, and intact Mild distention noted - Extremities Exam Extremities Exam: absent: Calf Tenderness - Neurological Exam Neurological Exam: Alert, Awake, Oriented x3 - Psychiatric Exam Psychiatric exam: Normal Affect, Normal Mood Assessment and Plan - Assessment and Plan (Free Text) Assessment: 52 y.o male POD#1 Laparoscopic small bowel resection with anastomosis secondary to perforated Meckel's diverticulitis Plan: c/w with pain management c/w abx d/c zapata ngt intact started on DVT prophylaxis Lovenox 40 mg SC daily further recs per Dr. Gordillo
--- NOTE | 2017-05-31 18:24 | CP.PCM.PN ---
Subjective - Date & Time of Evaluation Date of Evaluation: 05/31/17 Time of Evaluation: 11:30 - Subjective Subjective: Patient was seen and examined bedside. Post laparascopic resection of perforated Meckel diverticulum with primary anastomosis 05/[address] with >300 ml of bilious output this AM Not passing any flatus Pain is controlled with pain medication Abdomen appears distended and with hypoactive bowel sounds No acute issues overnight. slightly tachycardic , afebrile , BP stable, no tremors. Denies any SOB or chest pain Objective - Vital Signs/Intake and Output Vital Signs (last 24 hours): Temp Pulse Resp BP Pulse Ox 98.2 F 123 H 20 123/88 94 L 05/31/17 16:33 05/31/17 16:33 05/31/17 16:33 05/31/17 16:33 05/31/17 16:33 Intake and Output: 05/31/17 05/31/17 06:59 18:59 Intake Total 700 Output Total 405 Balance 295 - Medications Medications: Current Medications Acetaminophen (Tylenol 325mg Tab) 650 mg PO Q6 PRN PRN Reason: Fever >100.4 F Enoxaparin Sodium (Lovenox) 40 mg SC DAILY [facility]IE PRN Reason: Protocol Lactated Ringer's (Lactated Ringer's) 1,000 mls @ 999 mls/hr IV .Q1H1M ANDIE Lactated Ringer's (Lactated Ringer's) 1,000 mls @ 150 mls/hr IV .Q6H40M ANDIE Sodium Chloride (Sodium Chloride 0.9%) 1,000 mls @ 150 mls/hr IV .Q6H40M ANDIE Stop: 05/31/17 20:10 Last Admin: 05/31/17 17:07 Dose: Not Given Piperacillin Sod/Tazobactam (Sod 3.375 gm/ Sodium Chloride) 100 mls @ 100 mls/ hr IVPB Q6H [facility]IE PRN Reason: Protocol Last Admin: 05/31/17 12:30 Dose: 100 mls/hr Morphine Sulfate (Morphine) 4 mg IVP Q4 PRN PRN Reason: Pain, moderate (4-7) Last Admin: 05/31/17 12:30 Dose: 4 mg Ondansetron HCl (Zofran Inj) 4 mg IVP Q6 PRN PRN Reason: Nausea/Vomiting Pantoprazole Sodium (Protonix Inj) 40 mg IVP DAILY ANDIE - Labs Labs: 05/31/17 09:02 05/31/17 09:02 PT 13.0 Seconds (9.8-13.1) 05/30/17 01:40 INR 1.2 (0.9-1.2) 05/30/17 01:40 APTT 27.7 Seconds (25.6-37.1) 05/30/17 01:40 - Constitutional Appears: Non-toxic, No Acute Distress - Head Exam Head Exam: ATRAUMATIC, NORMAL INSPECTION, NORMOCEPHALIC - Eye Exam Eye Exam: EOMI, Normal appearance, PERRL Pupil Exam: NORMAL ACCOMODATION - ENT Exam ENT Exam: Mucous Membranes Dry, Normal Exam - Neck Exam Neck Exam: Full ROM, Normal Inspection - Respiratory Exam Respiratory Exam: Clear to Ausculation Bilateral, NORMAL BREATHING PATTERN. absent: Rhonchi, Wheezes, Respiratory Distress - Cardiovascular Exam Cardiovascular Exam: REGULAR RHYTHM, RRR, +S1, +S2. absent: JVD - GI/Abdominal Exam GI & Abdominal Exam: Distended, Hypoactive Bowel Sounds. absent: Guarding, Rebound Additional comments: COLBY drain to LLQ with sero sanguinous output NGT in place with bilious output - Rectal Exam Rectal Exam: Deferred - Extremities Exam Extremities Exam: Full ROM, Normal Capillary Refill, Normal Inspection. absent : Calf Tenderness, Pedal Edema - Back Exam Back Exam: NORMAL INSPECTION - Neurological Exam Neurological Exam: Alert, Awake, CN II-XII Intact, Oriented x3 - Psychiatric Exam Psychiatric exam: Normal Affect - Skin Skin Exam: Dry, Warm Assessment and Plan - Assessment and Plan (Free Text) Assessment: 52 years old male with hx of HTN and Gout, came with a 6 days hx of intermittent abdominal pain. The pain is located at the LLQ then radiates across the pelvis to the right lower quadrant, becoming continuous and more severe on the day of admission. Ct abdomen showed Meckel diverticulitis. Surgery consulted, started on IV Zosyn and kept NPO. taken to OR 05/30 and underwent laparascopic resection of perforated Meckle's diverticulitis with primary anastamosis Today post op day 1 . With NGT in place and large bilious output, not passing flatus, abdomen distended 1.Perforated Meckel's Diverticulitis S/P laparascopic resection of part of small bowel with anastomosis NGT in place with large bilious output and abdomen apperas distended with no BS. partient not passing flatus keep NGT in place Promote ambulation , incentive spirometry and d/c Vásquez Continue IVF and Zosyn IV COLBY drain to LLQ with minimal sero sanguinous output Keep NPO surgery following up closelty 2. Acute blood loss anemia Hgb droped from 12.9--10.7 monitor for now 3. History ETOH abuse no signs of withdrawal or tremors 4. DVT prophylaxis SCD started Lovenox
[2017-05-31] MEDS: Enoxaparin 40 mg Syringe SC SCH (22:34)
[2017-06-01] MEDS: Piperacillin/Tazobact 3.375 GM in Sodium Chloride 0.9% 100 ML IVPB SCH ×4 (00:11→18:15)
[2017-06-01] MEDS ORDERED: DiphenhydrAMINE 50 mg/ml Inj IVP STA ×2 (04:08)
[2017-06-01 06:50] LABS: HEMOGLOBIN 10.5 g/dL (12.0-18.0); MEAN CELL VOLUME 92.8 fl (80.0-94.0); MEAN CORPUSCULAR HEMOGLOBIN 30.7 pg (27.0-31.0); MEAN CORPUSCULAR HGB CONC 33.1 g/dL (33.0-37.0); RBC 3.43 Mil/uL (4.40-5.90); RED CELL DISTRIBUTION WIDTH 12.4 % (11.5-14.5); WHITE BLOOD COUNT 11.2 K/uL (4.8-10.8)
[2017-06-01 07:36] LABS: BLOOD UREA NITROGEN 23 mg/dl (9-20); CALCIUM 8.9 mg/dL (8.4-10.2); GFR AFRICAN-AMERICAN > 60; GFR NON-AFRICAN AMERICAN > 60
[2017-06-01] MEDS: Lactated Ringer's 1,000 ML IV SCH ×2 (08:28→11:15)
[2017-06-01] MEDS: Enoxaparin 40 mg Syringe SC SCH (08:28)
--- NOTE | 2017-06-01 08:40 | CP.PCM.PN ---
Subjective - Date & Time of Evaluation Date of Evaluation: 06/01/17 Time of Evaluation: 07:50 - Subjective Subjective: General Surgery Progress Note- Dr. Gordillo 52 y.o male POD#2 laparoscopic small bowel resection with anastomosis secondary to perforated Meckel's diverticulitis. Patient seen resting comfortably in bed, in NAD, and AA0x3. Patient denies acute overnight events. Patient reports pain and tenderness to the abdomen, well controlled with medication. Patient reports that he is feeling much better today. Reports that his stomach feels less distended. Able to pass gas yesterday. No urinary problems. Denies n/v/sob/cp/ chills or fever Objective - Vital Signs/Intake and Output Vital Signs (last 24 hours): Temp Pulse Resp BP Pulse Ox 97.2 F L 72 20 150/97 H 97 05/31/17 23:54 05/31/17 23:54 05/31/17 23:54 06/01/17 00:14 05/31/17 23:54 - Medications Medications: Current Medications Acetaminophen (Tylenol 325mg Tab) 650 mg PO Q6 PRN PRN Reason: Fever >100.4 F Enoxaparin Sodium (Lovenox) 40 mg SC DAILY [facility] PRN Reason: Protocol Last Admin: 06/01/17 08:28 Dose: 40 mg Lactated Ringer's (Lactated Ringer's) 1,000 mls @ 999 mls/hr IV .Q1H1M ANDIE Lactated Ringer's (Lactated Ringer's) 1,000 mls @ 150 mls/hr IV .Q6H40M [facility] Last Admin: 06/01/17 08:28 Dose: 150 mls/hr Piperacillin Sod/Tazobactam (Sod 3.375 gm/ Sodium Chloride) 100 mls @ 100 mls/ hr IVPB Q6H [facility] PRN Reason: Protocol Last Admin: 06/01/17 06:12 Dose: 100 mls/hr Morphine Sulfate (Morphine) 4 mg IVP Q4 PRN PRN Reason: Pain, moderate (4-7) Last Admin: 05/31/17 12:30 Dose: 4 mg Ondansetron HCl (Zofran Inj) 4 mg IVP Q6 PRN PRN Reason: Nausea/Vomiting Pantoprazole Sodium (Protonix Inj) 40 mg IVP DAILY [facility] - Labs Labs: 06/01/17 06:30 06/01/17 06:30 PT 13.0 Seconds (9.8-13.1) 05/30/17 01:40 INR 1.2 (0.9-1.2) 05/30/17 01:40 APTT 27.7 Seconds (25.6-37.1) 05/30/17 01:40 - Constitutional Appears: Well, Non-toxic, No Acute Distress - Eye Exam Eye Exam: Normal appearance - ENT Exam ENT Exam: Normal Exam - Neck Exam Neck Exam: Normal Inspection - Respiratory Exam Respiratory Exam: NORMAL BREATHING PATTERN - Cardiovascular Exam Cardiovascular Exam: +S1, +S2 - GI/Abdominal Exam Additional comments: Pain with palpation to surgical site- less pain Dressing is clean dry, and intact Mild distention noted- improved - Extremities Exam Extremities Exam: absent: Calf Tenderness - Neurological Exam Neurological Exam: Alert, Awake, Oriented x3 Assessment and Plan - Assessment and Plan (Free Text) Assessment: 52 y.o male POD#2 Laparoscopic small bowel resection with anastomosis secondary to perforated Meckel's diverticulitis Plan: -c/w with pain management -c/w abx -d/c zapata -ordered Pantroprazole -ngt intact -c/w DVT prophylaxis Lovenox 40 mg SC daily -further recs per Dr. Gordillo
--- NOTE | 2017-06-01 09:42 | CP.PCM.PN ---
Subjective - Date & Time of Evaluation Date of Evaluation: 06/01/17 Time of Evaluation: 09:00 - Subjective Subjective: Patient seen and examined bedside. Feeling a little better. Passed gas yesterday but not at present. NGT in placer with 1000 ml bilious output last 12 hours COLBY drain to LLQ with 15 ml sero sanguinous output JHemodynamically stable, afebrile No acute issues overnight Objective - Vital Signs/Intake and Output Vital Signs (last 24 hours): Temp Pulse Resp BP Pulse Ox 99.6 F 82 20 150/90 93 L 06/01/17 08:55 06/01/17 08:55 06/01/17 08:55 06/01/17 08:55 06/01/17 08:55 - Medications Medications: Current Medications Acetaminophen (Tylenol 325mg Tab) 650 mg PO Q6 PRN PRN Reason: Fever >100.4 F Enoxaparin Sodium (Lovenox) 40 mg SC DAILY [facility] PRN Reason: Protocol Last Admin: 06/01/17 08:28 Dose: 40 mg Lactated Ringer's (Lactated Ringer's) 1,000 mls @ 999 mls/hr IV .Q1H1M [facility] Lactated Ringer's (Lactated Ringer's) 1,000 mls @ 150 mls/hr IV .Q6H40M [facility] Last Admin: 06/01/17 08:28 Dose: 150 mls/hr Piperacillin Sod/Tazobactam (Sod 3.375 gm/ Sodium Chloride) 100 mls @ 100 mls/ hr IVPB Q6H [facility] PRN Reason: Protocol Last Admin: 06/01/17 06:12 Dose: 100 mls/hr Morphine Sulfate (Morphine) 4 mg IVP Q4 PRN PRN Reason: Pain, moderate (4-7) Last Admin: 05/31/17 12:30 Dose: 4 mg Ondansetron HCl (Zofran Inj) 4 mg IVP Q6 PRN PRN Reason: Nausea/Vomiting Pantoprazole Sodium (Protonix Inj) 40 mg IVP DAILY [facility] - Labs Labs: 06/01/17 06:30 06/01/17 06:30 PT 13.0 Seconds (9.8-13.1) 05/30/17 01:40 INR 1.2 (0.9-1.2) 05/30/17 01:40 APTT 27.7 Seconds (25.6-37.1) 05/30/17 01:40 - Constitutional Appears: Non-toxic, No Acute Distress - Head Exam Head Exam: ATRAUMATIC, NORMAL INSPECTION, NORMOCEPHALIC - Eye Exam Eye Exam: EOMI, Normal appearance, PERRL Pupil Exam: NORMAL ACCOMODATION - ENT Exam ENT Exam: Mucous Membranes Dry, Normal Exam - Neck Exam Neck Exam: Full ROM, Normal Inspection - Respiratory Exam Respiratory Exam: Clear to Ausculation Bilateral, NORMAL BREATHING PATTERN. absent: Rales, Rhonchi, Wheezes - Cardiovascular Exam Cardiovascular Exam: REGULAR RHYTHM, RRR, +S1, +S2. absent: JVD - GI/Abdominal Exam GI & Abdominal Exam: Distended, Soft, Hypoactive Bowel Sounds. absent: Guarding , Tenderness, Rebound Additional comments: COLBY drain to LLQ - Rectal Exam Rectal Exam: Deferred - Extremities Exam Extremities Exam: Full ROM, Normal Capillary Refill, Normal Inspection. absent : Calf Tenderness, Pedal Edema - Back Exam Back Exam: NORMAL INSPECTION - Neurological Exam Neurological Exam: Alert, Awake, CN II-XII Intact, Oriented x3 - Psychiatric Exam Psychiatric exam: Normal Affect, Normal Mood - Skin Skin Exam: Dry, Intact, Normal Color, Warm Assessment and Plan - Assessment and Plan (Free Text) Assessment: 52 years old male with hx of HTN and Gout, came with a 6 days hx of intermittent abdominal pain. The pain is located at the LLQ then radiates across the pelvis to the right lower quadrant, becoming continuous and more severe on the day of admission. CT abdomen showed Meckel diverticulitis. Surgery consulted, started on IV Zosyn and kept NPO. Taken to OR 05/30 and underwent laparascopic resection of perforated Meckle's diverticulitis with primary anastamosis Today post op day [address] and large bilious output 1000 ml last 12 hours , passed flatus once yesterday ,abdomen distended 1.Perforated Meckel's Diverticulitis S/P laparascopic resection of part of small bowel with anastomosis NGT in place with large bilious output and abdomen appears distended with no BS . Passed flatus once yesterday keep NGT in place Promote ambulation , incentive spirometry Continue IVF and Zosyn IV COLBY drain to LLQ with minimal sero sanguinous output Keep NPO surgery following up closely 2. Acute blood loss anemia Hgb droped from 12.9--10.7 monitor for now 3. History ETOH abuse no signs of withdrawal or tremors 4. DVT prophylaxis SCD Lovenox
[2017-06-02] MEDS: Piperacillin/Tazobact 3.375 GM in Sodium Chloride 0.9% 100 ML IVPB SCH ×4 (00:07→18:27)
[2017-06-02] MEDS: Lactated Ringer's 1,000 ML IV SCH ×3 (00:08→10:18)
[2017-06-02 06:10] LABS: HEMOGLOBIN 9.9 g/dL (12.0-18.0); MEAN CELL VOLUME 93.6 fl (80.0-94.0); MEAN CORPUSCULAR HEMOGLOBIN 31.7 pg (27.0-31.0); MEAN CORPUSCULAR HGB CONC 33.9 g/dL (33.0-37.0); RBC 3.11 Mil/uL (4.40-5.90); RED CELL DISTRIBUTION WIDTH 12.4 % (11.5-14.5); WHITE BLOOD COUNT 9.8 K/uL (4.8-10.8)
[2017-06-02 07:04] LABS: BLOOD UREA NITROGEN 31 mg/dl (9-20); CALCIUM 9.2 mg/dL (8.4-10.2); GFR AFRICAN-AMERICAN > 60; GFR NON-AFRICAN AMERICAN > 60
--- NOTE | 2017-06-02 07:51 | CP.PCM.PN ---
Subjective - Date & Time of Evaluation Date of Evaluation: 06/02/17 Time of Evaluation: 07:46 - Subjective Subjective: General Surgery Progress Note- Dr. Gordillo 52 y.o male POD#3 laparoscopic small bowel resection with anastomosis secondary to perforated Meckel's diverticulitis. Patient seen resting comfortably in bed, in NAD, and AA0x3. Patient denies acute overnight events. Patient reports pain and tenderness to the abdomen- well controlled with medication. Pain is improving. Patient reports that he is feeling much better today. Reports continue to walk around without issues or assistance. Reports that his stomach feels less distended. No urinary problems. Denies n/v/sob/cp/chills or fever Objective - Vital Signs/Intake and Output Vital Signs (last 24 hours): Temp Pulse Resp BP Pulse Ox 98.2 F 56 L 20 154/90 H 96 06/02/17 01:00 06/02/17 01:00 06/02/17 01:00 06/02/17 01:00 06/02/17 01:00 Intake and Output: 06/02/17 06/02/17 06:59 18:59 Intake Total 1800 Output Total 515 Balance 1285 - Medications Medications: Current Medications Acetaminophen (Tylenol 325mg Tab) 650 mg PO Q6 PRN PRN Reason: Fever >100.4 F Enoxaparin Sodium (Lovenox) 40 mg SC DAILY [facility] PRN Reason: Protocol Last Admin: 06/01/17 08:28 Dose: 40 mg Lactated Ringer's (Lactated Ringer's) 1,000 mls @ 999 mls/hr IV .Q1H1M [facility] Lactated Ringer's (Lactated Ringer's) 1,000 mls @ 150 mls/hr IV .Q6H40M [facility] Last Admin: 06/02/17 00:08 Dose: 150 mls/hr Piperacillin Sod/Tazobactam (Sod 3.375 gm/ Sodium Chloride) 100 mls @ 100 mls/ hr IVPB Q6H [facility] PRN Reason: Protocol Last Admin: 06/02/17 06:07 Dose: 100 mls/hr Morphine Sulfate (Morphine) 4 mg IVP Q4 PRN PRN Reason: Pain, moderate (4-7) Last Admin: 06/02/17 02:20 Dose: 4 mg Ondansetron HCl (Zofran Inj) 4 mg IVP Q6 PRN PRN Reason: Nausea/Vomiting Pantoprazole Sodium (Protonix Inj) 40 mg IVP DAILY [facility] Last Admin: 06/01/17 18:17 Dose: 40 mg - Labs Labs: 06/02/17 05:57 06/02/17 05:57 PT 13.0 Seconds (9.8-13.1) 05/30/17 01:40 INR 1.2 (0.9-1.2) 05/30/17 01:40 APTT 27.7 Seconds (25.6-37.1) 05/30/17 01:40 - Constitutional Appears: Well, Non-toxic, No Acute Distress - Eye Exam Eye Exam: Normal appearance - ENT Exam ENT Exam: Normal Exam - Neck Exam Neck Exam: Normal Inspection - Respiratory Exam Respiratory Exam: NORMAL BREATHING PATTERN - Cardiovascular Exam Cardiovascular Exam: +S1, +S2 - GI/Abdominal Exam Additional comments: Dressing is clean dry, and intact without strikethrough Pain with palpation to surgical site- less pain Mild distention noted- improved Surgical incision well coapted, no dehiscence, no drainage, no clinical signs of infection - Extremities Exam Extremities Exam: absent: Calf Tenderness - Neurological Exam Neurological Exam: Alert, Awake, Oriented x3 - Psychiatric Exam Psychiatric exam: Normal Affect, Normal Mood - Skin Skin Exam: Dry, Intact, Normal Color, Warm Assessment and Plan - Assessment and Plan (Free Text) Assessment: 52 y.o male POD#3 Laparoscopic small bowel resection with anastomosis secondary to perforated Meckel's diverticulitis Plan: -c/w with pain management -c/w abx -keep NPO -ngt intact; to be clamp for 4 hours -encourage ambulation -c/w DVT prophylaxis Lovenox 40 mg SC daily -further recs per Dr. Gordillo
[2017-06-02] MEDS: Enoxaparin 40 mg Syringe SC SCH (08:41)
--- NOTE | 2017-06-02 12:09 | CP.PCM.PN ---
Subjective - Date & Time of Evaluation Date of Evaluation: 06/02/17 Time of Evaluation: 11:30 - Subjective Subjective: No fever abd pain controlled NGT drainage less today less than 100ml in canister COLBY drain - minimal drainage no CP no SOB Objective - Vital Signs/Intake and Output Vital Signs (last 24 hours): Temp Pulse Resp BP Pulse Ox 97.9 F 82 20 153/91 H 93 L 06/02/17 09:00 06/02/17 09:00 06/02/17 09:00 06/02/17 09:00 06/02/17 09:00 Intake and Output: 06/02/17 06/02/17 06:59 18:59 Intake Total 1800 Output Total 515 Balance 1285 - Medications Medications: Current Medications Acetaminophen (Tylenol 325mg Tab) 650 mg PO Q6 PRN PRN Reason: Fever >100.4 F Enoxaparin Sodium (Lovenox) 40 mg SC DAILY [facility] PRN Reason: Protocol Last Admin: 06/02/17 08:41 Dose: 40 mg Lactated Ringer's (Lactated Ringer's) 1,000 mls @ 999 mls/hr IV .Q1H1M [facility] Lactated Ringer's (Lactated Ringer's) 1,000 mls @ 150 mls/hr IV .Q6H40M [facility] Last Admin: 06/02/17 10:18 Dose: 150 mls/hr Piperacillin Sod/Tazobactam (Sod 3.375 gm/ Sodium Chloride) 100 mls @ 100 mls/ hr IVPB Q6H [facility] PRN Reason: Protocol Last Admin: 06/02/17 06:07 Dose: 100 mls/hr Morphine Sulfate (Morphine) 4 mg IVP Q4 PRN PRN Reason: Pain, moderate (4-7) Last Admin: 06/02/17 02:20 Dose: 4 mg Ondansetron HCl (Zofran Inj) 4 mg IVP Q6 PRN PRN Reason: Nausea/Vomiting Pantoprazole Sodium (Protonix Inj) 40 mg IVP DAILY [facility] Last Admin: 06/02/17 08:41 Dose: 40 mg - Labs Labs: 06/02/17 05:57 06/02/17 05:57 PT 13.0 Seconds (9.8-13.1) 05/30/17 01:40 INR 1.2 (0.9-1.2) 05/30/17 01:40 APTT 27.7 Seconds (25.6-37.1) 05/30/17 01:40 - Constitutional Appears: No Acute Distress - Head Exam Head Exam: NORMAL INSPECTION, NORMOCEPHALIC - Eye Exam Eye Exam: EOMI, Normal appearance, PERRL Pupil Exam: NORMAL ACCOMODATION - ENT Exam ENT Exam: Mucous Membranes Dry, Normal External Ear Exam - Neck Exam Neck Exam: Full ROM. absent: Meningismus - Respiratory Exam Respiratory Exam: NORMAL BREATHING PATTERN. absent: Rales, Wheezes, Respiratory Distress - Cardiovascular Exam Cardiovascular Exam: REGULAR RHYTHM, +S1, +S2 - GI/Abdominal Exam GI & Abdominal Exam: Distended, Tenderness, Hypoactive Bowel Sounds - Extremities Exam Extremities Exam: Full ROM, Normal Capillary Refill. absent: Calf Tenderness, Pedal Edema - Back Exam Back Exam: Full ROM. absent: CVA tenderness (L), CVA tenderness (R) - Neurological Exam Neurological Exam: Alert, Awake, CN II-XII Intact, Normal Gait, Oriented x3 Neuro motor strength exam: Left Upper Extremity: 5, Right Upper Extremity: 5, Left Lower Extremity: 5, Right Lower Extremity: 5 - Psychiatric Exam Psychiatric exam: Normal Affect, Normal Mood - Skin Skin Exam: Dry, Normal Color, Warm Assessment and Plan - Assessment and Plan (Free Text) Assessment: 52 years old male with hx of HTN and Gout, came with a 6 days hx of intermittent abdominal pain. The pain is located at the LLQ then radiated across the pelvis to the right lower quadrant, becoming continuous and more severe on the day of admission. CT abdomen showed Meckel diverticulitis. Surgery consulted, started on IV Zosyn and kept NPO. Taken to OR 05/30 and underwent laparascopic resection of perforated Meckle's diverticulitis with primary anastamosis NGT in place and with large bilious output. Todat 06/02 : NGT drainage is less , + flatus and small liquid BM 1.Perforated Meckel's Diverticulitis S/P laparascopic resection of part of small bowel with anastomosis NGT in place, drainage less than yesterday however abdomen appears distended with no BS . Passed flatus and had small amount of BM keep NGT in place Promote ambulation , incentive spirometry Continue IVF and Zosyn IV COLBY drain to LLQ with minimal sero sanguinous output Keep NPO surgery following up closely 2. Acute blood loss anemia Hgb droped from 12.9--9.8 monitor for now 3. History ETOH abuse no signs of withdrawal or tremors 4. Hypokalemia from GI loss , and NPO status - KCL 20 meq IV 4. DVT prophylaxis SCD Lovenox
[2017-06-02] MEDS ORDERED: Potassium Chloride 20 mEq 100 ML IVPB ONE (12:19)
[2017-06-03] MEDS: Piperacillin/Tazobact 3.375 GM in Sodium Chloride 0.9% 100 ML IVPB SCH ×4 (01:38→21:57)
[2017-06-03] MEDS: Lactated Ringer's 1,000 ML IV SCH (01:40)
[2017-06-03 07:10] LABS: HEMOGLOBIN 9.8 g/dL (12.0-18.0); MEAN CELL VOLUME 92.2 fl (80.0-94.0); MEAN CORPUSCULAR HEMOGLOBIN 31.3 pg (27.0-31.0); MEAN CORPUSCULAR HGB CONC 33.9 g/dL (33.0-37.0); RBC 3.12 Mil/uL (4.40-5.90); RED CELL DISTRIBUTION WIDTH 12.3 % (11.5-14.5)
[2017-06-03 07:23] LABS: BLOOD UREA NITROGEN 27 mg/dl (9-20); CALCIUM 8.9 mg/dL (8.4-10.2); GFR AFRICAN-AMERICAN > 60; GFR NON-AFRICAN AMERICAN > 60
--- NOTE | 2017-06-03 09:24 | CP.PCM.PN ---
Subjective - Date & Time of Evaluation Date of Evaluation: 06/03/17 Time of Evaluation: 09:21 - Subjective Subjective: Surgery Patient seen and examined. No acute events. Reports having BM. TOlerating CLD. Drain has minimal output. Ambulating. Pain controlled. Objective - Vital Signs/Intake and Output Vital Signs (last 24 hours): Temp Pulse Resp BP Pulse Ox 98.8 F 55 L 20 165/86 H 95 06/03/17 08:26 06/03/17 08:26 06/03/17 08:26 06/03/17 08:26 06/03/17 08:26 Intake and Output: 06/03/17 06/03/17 06:59 18:59 Output Total 30 30 Balance -30 -30 - Medications Medications: Current Medications Acetaminophen (Tylenol 325mg Tab) 650 mg PO Q6 PRN PRN Reason: Fever >100.4 F Enoxaparin Sodium (Lovenox) 40 mg SC DAILY [facility] PRN Reason: Protocol Last Admin: 06/02/17 08:41 Dose: 40 mg Morphine Sulfate (Morphine) 4 mg IVP Q4 PRN PRN Reason: Pain, moderate (4-7) Last Admin: 06/02/17 02:20 Dose: 4 mg Ondansetron HCl (Zofran Inj) 4 mg IVP Q6 PRN PRN Reason: Nausea/Vomiting Oxycodone/Acetaminophen (Percocet 5/325 Mg Tab) 2 tab PO Q4 PRN PRN Reason: Pain, severe (8-10) Stop: 06/06/17 09:19 Pantoprazole Sodium (Protonix Inj) 40 mg IVP DAILY [facility] Last Admin: 06/02/17 08:41 Dose: 40 mg Potassium Chloride (Potassium Chloride Oral Soln) 20 meq PO ONCE ONE Stop: 06/03/17 09:31 - Labs Labs: 06/03/17 05:25 06/03/17 05:25 PT 13.0 Seconds (9.8-13.1) 05/30/17 01:40 INR 1.2 (0.9-1.2) 05/30/17 01:40 APTT 27.7 Seconds (25.6-37.1) 05/30/17 01:40 - Constitutional Appears: No Acute Distress - Head Exam Head Exam: ATRAUMATIC, NORMAL INSPECTION, NORMOCEPHALIC - Eye Exam Eye Exam: EOMI, Normal appearance, PERRL Pupil Exam: NORMAL ACCOMODATION, PERRL - ENT Exam ENT Exam: Mucous Membranes Moist, Normal Exam - Neck Exam Neck Exam: Full ROM, Normal Inspection. absent: Lymphadenopathy - Respiratory Exam Respiratory Exam: Clear to Ausculation Bilateral, NORMAL BREATHING PATTERN - Cardiovascular Exam Cardiovascular Exam: REGULAR RHYTHM, +S1, +S2. absent: Murmur - GI/Abdominal Exam GI & Abdominal Exam: Soft, Tenderness, Normal Bowel Sounds. absent: Distended, Firm, Guarding, Rigid Additional comments: Dressing C/D/I. Drain in place. - Extremities Exam Extremities Exam: Full ROM, Normal Capillary Refill, Normal Inspection. absent : Joint Swelling, Pedal Edema - Back Exam Back Exam: NORMAL INSPECTION - Neurological Exam Neurological Exam: Alert, Awake, CN II-XII Intact, Normal Gait, Oriented x3 - Psychiatric Exam Psychiatric exam: Normal Affect, Normal Mood - Skin Skin Exam: Dry, Intact, Normal Color, Warm Assessment and Plan - Assessment and Plan (Free Text) Assessment: 52 y.o male POD#3 Laparoscopic small bowel resection with anastomosis secondary to perforated Meckel's diverticulitis: Having BM Plan: -c/w with pain management -c/w abx -cw Pantroprazole -Advance diet as tolerated -c/w DVT prophylaxis Lovenox 40 mg SC daily -further recs per Dr. Gordillo
[2017-06-03] MEDS ORDERED: Potassium Chloride 20 mEq/15 ml LIQ UD PO ONE (09:30)
[2017-06-03] MEDS: Enoxaparin 40 mg Syringe SC SCH (09:38)
--- NOTE | 2017-06-03 13:25 | CP.PCM.PN ---
Subjective - Date & Time of Evaluation Date of Evaluation: 06/03/17 Time of Evaluation: 13:02 - Subjective Subjective: patient doing very well, ambulating without difficulty, passing gas and liquid BM. awaiting id and sens for gm+ cocci. HD stable nad Objective - Vital Signs/Intake and Output Vital Signs (last 24 hours): Temp Pulse Resp BP Pulse Ox 98.8 F 55 L 20 165/86 H 95 06/03/17 08:26 06/03/17 08:26 06/03/17 08:26 06/03/17 08:26 06/03/17 08:26 Intake and Output: 06/03/17 06/03/17 06:59 18:59 Output Total 30 30 Balance -30 -30 - Medications Medications: Current Medications Acetaminophen (Tylenol 325mg Tab) 650 mg PO Q6 PRN PRN Reason: Fever >100.4 F Enoxaparin Sodium (Lovenox) 40 mg SC DAILY [facility] PRN Reason: Protocol Last Admin: 06/03/17 09:38 Dose: 40 mg Piperacillin Sod/Tazobactam (Sod 3.375 gm/ Sodium Chloride) 100 mls @ 100 mls/ hr IVPB Q6 [facility] PRN Reason: Protocol Last Admin: 06/03/17 10:44 Dose: 100 mls/hr Morphine Sulfate (Morphine) 4 mg IVP Q4 PRN PRN Reason: Pain, moderate (4-7) Last Admin: 06/02/17 02:20 Dose: 4 mg Ondansetron HCl (Zofran Inj) 4 mg IVP Q6 PRN PRN Reason: Nausea/Vomiting Oxycodone/Acetaminophen (Percocet 5/325 Mg Tab) 2 tab PO Q4 PRN PRN Reason: Pain, severe (8-10) Stop: 06/06/17 09:19 Pantoprazole Sodium (Protonix Inj) 40 mg IVP DAILY [facility] Last Admin: 06/03/17 09:39 Dose: 40 mg - Labs Labs: 06/03/17 05:25 06/03/17 05:25 PT 13.0 Seconds (9.8-13.1) 05/30/17 01:40 INR 1.2 (0.9-1.2) 05/30/17 01:40 APTT 27.7 Seconds (25.6-37.1) 05/30/17 01:40 - Constitutional Appears: Non-toxic, No Acute Distress - Head Exam Head Exam: ATRAUMATIC, NORMOCEPHALIC - Eye Exam Eye Exam: EOMI, Normal appearance, PERRL Pupil Exam: NORMAL ACCOMODATION - ENT Exam ENT Exam: Mucous Membranes Moist, Normal Oropharynx - Respiratory Exam Respiratory Exam: Clear to Ausculation Bilateral, NORMAL BREATHING PATTERN - Cardiovascular Exam Cardiovascular Exam: RRR, +S1, +S2 - GI/Abdominal Exam GI & Abdominal Exam: Soft, Normal Bowel Sounds. absent: Tenderness, Mass, Organomegaly - Extremities Exam Extremities Exam: Normal Capillary Refill, Normal Inspection - Back Exam Back Exam: absent: CVA tenderness (L), CVA tenderness (R) - Neurological Exam Neurological Exam: Alert, Awake, Oriented x3 - Psychiatric Exam Psychiatric exam: Normal Affect, Normal Mood Assessment and Plan - Assessment and Plan (Free Text) Plan: 52 years old male with hx of HTN and Gout, came with a 6 days hx of intermittent abdominal pain. The pain is located at the LLQ then radiated across the pelvis to the right lower quadrant, becoming continuous and more severe on the day of admission. CT abdomen showed Meckel diverticulitis. Surgery consulted, started on IV Zosyn and kept NPO. Taken to OR 05/30 and underwent laparascopic resection of perforated Meckle's diverticulitis with primary anastamosis NGT in place and with large bilious output. 06/02: NGT drainage is less , + flatus and small liquid BM 06/03: d/c NGR yesterday, having liquid BM and passing gas, ambulating without difficulty. Awaiting sensitivities to cultures: EColi pansensitive, awaiting ID and sens for Gram Pos Cocci 1.Perforated Meckel's Diverticulitis S/P laparascopic resection of part of small bowel with anastomosis Passed flatus and had small amount of BM NGT d/c yesterday Promote ambulation , incentive spirometry Continue IVF and Zosyn IV COLBY drain to LLQ with minimal sero sanguinous output liquid diet surgery following up closely CULTURES: EColi pansensitive, awaiting ID and sens for Gram Pos Cocci 2. Acute blood loss anemia Hgb dropped from 12.9--9.8 stable 3. History ETOH abuse no signs of withdrawal or tremors 4. Hypokalemia from GI loss - KCL 20 meq IV 4. DVT prophylaxis SCD Lovenox
[2017-06-03] MEDS ORDERED: Piperacillin/Tazobact 3.375 GM in Sodium Chloride 0.9% 100 ML IVPB SCH (16:00)
[2017-06-04] MEDS: Piperacillin/Tazobact 3.375 GM in Sodium Chloride 0.9% 100 ML IVPB SCH ×4 (04:30→21:57)
[2017-06-04] MEDS: Enoxaparin 40 mg Syringe SC SCH (09:40)
--- NOTE | 2017-06-04 10:04 | CP.PCM.PN ---
Subjective - Date & Time of Evaluation Date of Evaluation: 06/04/17 Time of Evaluation: 10:00 - Subjective Subjective: very pleasant doing well ambulating without difficulty no pain having BM and flatus COLBY drain serosang, min HD stable NAD Objective - Vital Signs/Intake and Output Vital Signs (last 24 hours): Temp Pulse Resp BP Pulse Ox 98.9 F 50 L 20 163/93 H 98 06/04/17 08:20 06/04/17 08:20 06/04/17 08:20 06/04/17 09:40 06/04/17 08:20 Intake and Output: 06/04/17 06/04/17 06:59 18:59 Intake Total 200 Output Total 30 Balance 170 - Medications Medications: Current Medications Acetaminophen (Tylenol 325mg Tab) 650 mg PO Q6 PRN PRN Reason: Fever >100.4 F Allopurinol (Zyloprim) 100 mg PO DAILY [facility] Last Admin: 06/04/17 09:40 Dose: 100 mg Enoxaparin Sodium (Lovenox) 40 mg SC DAILY [facility] PRN Reason: Protocol Last Admin: 06/04/17 09:40 Dose: 40 mg Piperacillin Sod/Tazobactam (Sod 3.375 gm/ Sodium Chloride) 100 mls @ 100 mls/ hr IVPB Q6 [facility] PRN Reason: Protocol Last Admin: 06/04/17 09:42 Dose: 100 mls/hr Lisinopril (Zestril) 20 mg PO DAILY [facility] Last Admin: 06/04/17 09:40 Dose: 20 mg Ondansetron HCl (Zofran Inj) 4 mg IVP Q6 PRN PRN Reason: Nausea/Vomiting Oxycodone/Acetaminophen (Percocet 5/325 Mg Tab) 2 tab PO Q4 PRN PRN Reason: Pain, severe (8-10) Stop: 06/06/17 09:19 Pantoprazole Sodium (Protonix Inj) 40 mg IVP DAILY [facility] Last Admin: 06/04/17 09:41 Dose: 40 mg - Labs Labs: 06/03/17 05:25 06/03/17 05:25 PT 13.0 Seconds (9.8-13.1) 05/30/17 01:40 INR 1.2 (0.9-1.2) 05/30/17 01:40 APTT 27.7 Seconds (25.6-37.1) 05/30/17 01:40 - Constitutional Appears: Non-toxic, No Acute Distress - Head Exam Head Exam: ATRAUMATIC, NORMOCEPHALIC - Eye Exam Eye Exam: EOMI, Normal appearance, PERRL Pupil Exam: NORMAL ACCOMODATION - ENT Exam ENT Exam: Mucous Membranes Moist, Normal Oropharynx - Neck Exam Neck Exam: Full ROM, Normal Inspection - Respiratory Exam Respiratory Exam: Clear to Ausculation Bilateral, NORMAL BREATHING PATTERN - Cardiovascular Exam Cardiovascular Exam: RRR, +S1, +S2 - GI/Abdominal Exam GI & Abdominal Exam: Soft, Normal Bowel Sounds. absent: Tenderness, Organomegaly - Extremities Exam Extremities Exam: Normal Capillary Refill, Normal Inspection - Back Exam Back Exam: absent: CVA tenderness (L), CVA tenderness (R) - Neurological Exam Neurological Exam: Alert, Awake, Oriented x3 - Psychiatric Exam Psychiatric exam: Normal Affect, Normal Mood - Skin Skin Exam: Dry, Warm Assessment and Plan - Assessment and Plan (Free Text) Plan: 52 years old male with hx of HTN and Gout, came with a 6 days hx of intermittent abdominal pain. The pain is located at the LLQ then radiated across the pelvis to the right lower quadrant, becoming continuous and more severe on the day of admission. CT abdomen showed Meckel diverticulitis. Surgery consulted, started on IV Zosyn and kept NPO. Taken to OR 05/30 and underwent laparascopic resection of perforated Meckle's diverticulitis with primary anastamosis NGT in place and with large bilious output. 06/02: NGT drainage is less , + flatus and small liquid BM 06/03: d/c NGT yesterday, having liquid BM and passing gas, ambulating without difficulty. Awaiting sensitivities to cultures: EColi pansensitive, awaiting ID and sens for Gram Pos Cocci 06/04: COLBY drain serosang, doing well, comfortable. Discussed with [place] and [facility], Gm + cocci very small amt, may not be able to ID and sens. Will dscuss with Dr. Gordillo discharge planning. 1.Perforated Meckel's Diverticulitis S/P laparascopic resection of part of small bowel with anastomosis Passed flatus and had small amount of BM NGT d/c 2 days ago Promote ambulation , incentive spirometry Continue IVF and Zosyn IV COLBY drain to LLQ with minimal sero sanguinous output liquid diet surgery following up closely CULTURES: EColi pansensitive, awaiting ID and sens for Gram Pos Cocci 2. Acute blood loss anemia Hgb dropped from 12.9--9.8 stable 3. History ETOH abuse no signs of withdrawal or tremors 4. Hypokalemia from GI loss - KCL 20 meq IV 4. DVT prophylaxis SCD Lovenox
[2017-06-04 10:47] LABS: BASO # 0.1 K/uL (0.0-0.2); BASO % 0.5 % (0.0-2.0); EOS # 0.2 K/uL (0.0-0.7); EOS % 2.4 % (0.0-4.0); HEMOGLOBIN 10.1 g/dL (12.0-18.0); LYMPH # 1.8 K/uL (1.0-4.3); LYMPH % 18.3 % (20.0-40.0); MEAN CELL VOLUME 91.9 fl (80.0-94.0); MEAN CORPUSCULAR HEMOGLOBIN 31.7 pg (27.0-31.0); MEAN CORPUSCULAR HGB CONC 34.5 g/dL (33.0-37.0); MONO # 0.8 K/uL (0.0-0.8); MONO % 8.2 % (0.0-10.0); NEUT % 70.6 % (50.0-75.0); RBC 3.19 Mil/uL (4.40-5.90); RED CELL DISTRIBUTION WIDTH 12.1 % (11.5-14.5); WHITE BLOOD COUNT 9.9 K/uL (4.8-10.8)
[2017-06-04 10:52] LABS: ALB/GLOB RATIO 0.9 (1.0-2.1); ALBUMIN 2.9 g/dL (3.5-5.0); ALT/SGPT 36 U/L (21-72); AST/SGOT 56 U/L (17-59); BLOOD UREA NITROGEN 17 mg/dl (9-20); CALCIUM 8.6 mg/dL (8.4-10.2); GFR AFRICAN-AMERICAN > 60; GFR NON-AFRICAN AMERICAN > 60
[2017-06-05] MEDS: Piperacillin/Tazobact 3.375 GM in Sodium Chloride 0.9% 100 ML IVPB SCH ×4 (04:00→21:26)
[2017-06-05 06:48] LABS: HEMOGLOBIN 11.9 g/dL (12.0-18.0); MEAN CELL VOLUME 90.6 fl (80.0-94.0); MEAN CORPUSCULAR HEMOGLOBIN 31.5 pg (27.0-31.0); MEAN CORPUSCULAR HGB CONC 34.7 g/dL (33.0-37.0); RBC 3.77 Mil/uL (4.40-5.90); RED CELL DISTRIBUTION WIDTH 12.4 % (11.5-14.5); WHITE BLOOD COUNT 10.9 K/uL (4.8-10.8)
[2017-06-05 07:36] LABS: BLOOD UREA NITROGEN 12 mg/dl (9-20); CALCIUM 9.2 mg/dL (8.4-10.2); GFR AFRICAN-AMERICAN > 60; GFR NON-AFRICAN AMERICAN > 60
[2017-06-05 08:12] VITALS: RESP 20
--- NOTE | 2017-06-05 08:38 | CP.PCM.PN ---
Subjective - Date & Time of Evaluation Date of Evaluation: 06/05/17 Time of Evaluation: 08:36 - Subjective Subjective: SURGERY NOTE FOR DR. LOMBARDO 52M seen and examined at bedside. Patient doing well, tolerating diet, having multiple bowel movements, denies nausea/vomiting. Pain is controlled. Drain in place. Objective - Vital Signs/Intake and Output Vital Signs (last 24 hours): Temp Pulse Resp BP Pulse Ox 98.8 F 60 20 152/95 H 99 06/05/17 08:12 06/05/17 08:12 06/05/17 08:12 06/05/17 08:12 06/05/17 08:12 Intake and Output: 06/05/17 06/05/17 06:59 18:59 Intake Total 200 Output Total 18 Balance 182 - Medications Medications: Current Medications Acetaminophen (Tylenol 325mg Tab) 650 mg PO Q6 PRN PRN Reason: Fever >100.4 F Allopurinol (Zyloprim) 100 mg PO DAILY [facility] Last Admin: 06/04/17 09:40 Dose: 100 mg Enoxaparin Sodium (Lovenox) 40 mg SC DAILY [facility] PRN Reason: Protocol Last Admin: 06/04/17 09:40 Dose: 40 mg Piperacillin Sod/Tazobactam (Sod 3.375 gm/ Sodium Chloride) 100 mls @ 100 mls/ hr IVPB Q6 [facility] PRN Reason: Protocol Last Admin: 06/05/17 04:00 Dose: 100 mls/hr Lisinopril (Zestril) 20 mg PO DAILY [facility] Last Admin: 06/04/17 09:40 Dose: 20 mg Ondansetron HCl (Zofran Inj) 4 mg IVP Q6 PRN PRN Reason: Nausea/Vomiting Oxycodone/Acetaminophen (Percocet 5/325 Mg Tab) 2 tab PO Q4 PRN PRN Reason: Pain, severe (8-10) Stop: 06/06/17 09:19 Pantoprazole Sodium (Protonix Inj) 40 mg IVP DAILY [facility] Last Admin: 06/04/17 09:41 Dose: 40 mg - Labs Labs: 06/05/17 06:10 06/05/17 06:10 PT 13.0 Seconds (9.8-13.1) 05/30/17 01:40 INR 1.2 (0.9-1.2) 05/30/17 01:40 APTT 27.7 Seconds (25.6-37.1) 05/30/17 01:40 - Constitutional Appears: Well, Non-toxic, No Acute Distress - Respiratory Exam Respiratory Exam: Clear to Ausculation Bilateral, NORMAL BREATHING PATTERN - Cardiovascular Exam Cardiovascular Exam: REGULAR RHYTHM, +S1, +S2 - GI/Abdominal Exam GI & Abdominal Exam: Soft. absent: Distended, Firm, Guarding, Rigid, Tenderness , Rebound Additional comments: drain in place 78cc/24hrs. serous fluid. Incisions clean dry intact - Extremities Exam Extremities Exam: absent: Pedal Edema, Tenderness - Neurological Exam Neurological Exam: Alert, Awake Assessment and Plan - Assessment and Plan (Free Text) Assessment: 52M s/p laparoscopic small bowel resection for meckels diverticulitis, perforated. POD6 Plan: - Continue diet - cont antibiotics - monitor drain output - Pain control Further recs discuss with Dr. Duy Maria, PGY2
[2017-06-05] MEDS: Enoxaparin 40 mg Syringe SC SCH (10:08)
[2017-06-05] MEDS: Oxycodone/Acetaminophen 5/325 mg Tab PO PRN ×2 (10:24→21:24)
--- NOTE | 2017-06-05 12:45 | CP.PCM.PN ---
Subjective - Date & Time of Evaluation Date of Evaluation: 06/05/17 Time of Evaluation: 12:45 - Subjective Subjective: doing well stools beginning to form to solid tolerating regular diet well consider discharge tomorrow, will discuss with surgery HD stable NAD Objective - Vital Signs/Intake and Output Vital Signs (last 24 hours): Temp Pulse Resp BP Pulse Ox 98.8 F 60 20 152/95 H 99 06/05/17 08:12 06/05/17 10:11 06/05/17 08:12 06/05/17 10:11 06/05/17 08:12 Intake and Output: 06/05/17 06/05/17 06:59 18:59 Intake Total 200 Output Total 18 Balance 182 - Medications Medications: Current Medications Acetaminophen (Tylenol 325mg Tab) 650 mg PO Q6 PRN PRN Reason: Fever >100.4 F Allopurinol (Zyloprim) 100 mg PO DAILY [facility] Last Admin: 06/05/17 10:14 Dose: 100 mg Enoxaparin Sodium (Lovenox) 40 mg SC DAILY [facility] PRN Reason: Protocol Last Admin: 06/05/17 10:08 Dose: 40 mg Piperacillin Sod/Tazobactam (Sod 3.375 gm/ Sodium Chloride) 100 mls @ 100 mls/ hr IVPB Q6 [facility] PRN Reason: Protocol Last Admin: 06/05/17 10:13 Dose: 100 mls/hr Lisinopril (Zestril) 20 mg PO DAILY [facility] Last Admin: 06/05/17 10:11 Dose: 20 mg Ondansetron HCl (Zofran Inj) 4 mg IVP Q6 PRN PRN Reason: Nausea/Vomiting Oxycodone/Acetaminophen (Percocet 5/325 Mg Tab) 2 tab PO Q4 PRN PRN Reason: Pain, severe (8-10) Stop: 06/06/17 09:19 Last Admin: 06/05/17 10:24 Dose: 2 tab Pantoprazole Sodium (Protonix Inj) 40 mg IVP DAILY [facility] Last Admin: 06/05/17 10:09 Dose: 40 mg - Labs Labs: 06/05/17 06:10 06/05/17 06:10 PT 13.0 Seconds (9.8-13.1) 05/30/17 01:40 INR 1.2 (0.9-1.2) 05/30/17 01:40 APTT 27.7 Seconds (25.6-37.1) 05/30/17 01:40 - Additional Findings Additional findings: General: awake, alert HEENT: NCAT, PERRL, EOMI HEART: RRR, S1, S2 no MRG LUNG: CTAB, no WRR ABD: soft, NT, ND, no mass, no HSM EXT: warm, well perfused NEURO: awake, alert SKIN: warm, dry PSYCH: normal mood, normal affect Assessment and Plan - Assessment and Plan (Free Text) Plan: 52 years old male with hx of HTN and Gout, came with a 6 days hx of intermittent abdominal pain. The pain is located at the LLQ then radiated across the pelvis to the right lower quadrant, becoming continuous and more severe on the day of admission. CT abdomen showed Meckel diverticulitis. Surgery consulted, started on IV Zosyn and kept NPO. Taken to OR 05/30 and underwent laparascopic resection of perforated Meckle's diverticulitis with primary anastamosis NGT in place and with large bilious output. 06/02: NGT drainage is less , + flatus and small liquid BM 06/03: d/c NGT yesterday, having liquid BM and passing gas, ambulating without difficulty. Awaiting sensitivities to cultures: EColi pansensitive, awaiting ID and sens for Gram Pos Cocci 06/04: COLBY drain serosang, doing well, comfortable. Discussed with [facility], Gm + cocci very small amt, may not be able to ID and sens. Will dscuss with Dr. Gordillo discharge planning. 06/05: stools forming, no pain, ambulating well, possible discharge tomorrow? discuss with surgery. COLBY drain yellow clear min. 1.Perforated Meckel's Diverticulitis S/P laparascopic resection of part of small bowel with anastomosis Passed flatus and had small amount of BM NGT d/c 3 days ago Promote ambulation , incentive spirometry Continue IVF and Zosyn IV COLBY drain to LLQ with minimal sero sanguinous output liquid diet surgery following up closely CULTURES: EColi pansensitive, awaiting ID and sens for Gram Pos Cocci 2. Acute blood loss anemia Hgb dropped from 12.9--9.8 stable 3. History ETOH abuse no signs of withdrawal or tremors 4. Hypokalemia from GI loss - KCL 20 meq IV 4. DVT prophylaxis SCD Lovenox
[2017-06-05 23:25] VITALS: O2SAT 98
[2017-06-06] MEDS: Piperacillin/Tazobact 3.375 GM in Sodium Chloride 0.9% 100 ML IVPB SCH ×2 (04:22→09:01)
[2017-06-06 07:08] LABS: HEMOGLOBIN 11.5 g/dL (12.0-18.0); MEAN CELL VOLUME 90.3 fl (80.0-94.0); MEAN CORPUSCULAR HEMOGLOBIN 31.5 pg (27.0-31.0); MEAN CORPUSCULAR HGB CONC 34.9 g/dL (33.0-37.0); RBC 3.65 Mil/uL (4.40-5.90); RED CELL DISTRIBUTION WIDTH 12.5 % (11.5-14.5); WHITE BLOOD COUNT 10.9 K/uL (4.8-10.8)
[2017-06-06 07:23] LABS: BLOOD UREA NITROGEN 10 mg/dl (9-20); CALCIUM 9.1 mg/dL (8.4-10.2); GFR AFRICAN-AMERICAN > 60; GFR NON-AFRICAN AMERICAN > 60
--- NOTE | 2017-06-06 07:54 | CP.PCM.PN ---
Subjective - Date & Time of Evaluation Date of Evaluation: 06/06/17 Time of Evaluation: 07:45 - Subjective Subjective: General Surgery Note for Dr. Gordillo Patient seen and examined at bedside. No acute event overnight. Patient denies pain. He is tolerating diet, passing flatus and having multiple bowel movements. Denies fever/chills or nausea/vomiting. Drain removed today. Objective - Vital Signs/Intake and Output Vital Signs (last 24 hours): Temp Pulse Resp BP Pulse Ox 97.6 F 71 20 129/80 98 06/05/17 23:24 06/05/17 23:24 06/05/17 23:24 06/05/17 23:24 06/05/17 23:24 - Medications Medications: Current Medications Acetaminophen (Tylenol 325mg Tab) 650 mg PO Q6 PRN PRN Reason: Fever >100.4 F Allopurinol (Zyloprim) 100 mg PO DAILY [facility] Last Admin: 06/05/17 10:14 Dose: 100 mg Enoxaparin Sodium (Lovenox) 40 mg SC DAILY [facility] PRN Reason: Protocol Last Admin: 06/05/17 10:08 Dose: 40 mg Piperacillin Sod/Tazobactam (Sod 3.375 gm/ Sodium Chloride) 100 mls @ 100 mls/ hr IVPB Q6 [facility] PRN Reason: Protocol Last Admin: 06/06/17 04:22 Dose: 100 mls/hr Lisinopril (Zestril) 20 mg PO DAILY [facility] Last Admin: 06/05/17 10:11 Dose: 20 mg Ondansetron HCl (Zofran Inj) 4 mg IVP Q6 PRN PRN Reason: Nausea/Vomiting Oxycodone/Acetaminophen (Percocet 5/325 Mg Tab) 2 tab PO Q4 PRN PRN Reason: Pain, severe (8-10) Stop: 06/06/17 09:19 Last Admin: 06/05/17 21:24 Dose: 2 tab Pantoprazole Sodium (Protonix Inj) 40 mg IVP DAILY [facility] Last Admin: 06/05/17 10:09 Dose: 40 mg - Labs Labs: 06/06/17 06:30 06/06/17 06:30 PT 13.0 Seconds (9.8-13.1) 05/30/17 01:40 INR 1.2 (0.9-1.2) 05/30/17 01:40 APTT 27.7 Seconds (25.6-37.1) 05/30/17 01:40 - Constitutional Appears: No Acute Distress - Head Exam Head Exam: ATRAUMATIC, NORMOCEPHALIC - Eye Exam Eye Exam: EOMI, Normal appearance Pupil Exam: PERRL - ENT Exam ENT Exam: Mucous Membranes Moist - Respiratory Exam Respiratory Exam: NORMAL BREATHING PATTERN - Cardiovascular Exam Cardiovascular Exam: REGULAR RHYTHM - GI/Abdominal Exam GI & Abdominal Exam: Soft, Normal Bowel Sounds. absent: Distended, Firm, Guarding, Rigid, Tenderness, Rebound Additional comments: drain removed surgical sites clean, dry, and intact - Extremities Exam Extremities Exam: Normal Capillary Refill - Back Exam Back Exam: absent: CVA tenderness (L), CVA tenderness (R) - Neurological Exam Neurological Exam: Alert, Awake, Normal Gait, Oriented x3 - Psychiatric Exam Psychiatric exam: Normal Affect, Normal Mood - Skin Skin Exam: Dry, Intact, Normal Color, Warm Assessment and Plan - Assessment and Plan (Free Text) Plan: 52M s/p laparoscopic small bowel resection for perforated meckels diverticulitis POD#7 - Regular diet - Removed joel drain today - Clear for discharge from surgical standpoint - Levoquin and Flagyl for 7 days - Keep area clean and dry - No heavy lifting for a few weeks - Follow up as outpatient in 1-2 weeks - Discussed with Dr. Duy Antunez PGY1
[2017-06-06 08:44] VITALS: BP 153/93; PULSE 86; TEMP 98.1
[2017-06-06] MEDS: Oxycodone/Acetaminophen 5/325 mg Tab PO PRN (08:57)
[2017-06-06] MEDS: Enoxaparin 40 mg Syringe SC SCH (08:58)
--- NOTE | 2017-06-06 11:25 | CP.PCM.DIS ---
Provider - Provider Date of Admission: 05/30/17 01:09 Attending physician: Ghulam Singer Time Spent in preparation of Discharge (in minutes): 30 Hospital Course - Lab Results Lab Results: Micro Results 05/30/17 16:00 Abscess - Peritoneal Cavity Gram Stain - Final 05/30/17 16:00 Abscess - Peritoneal Cavity Wound Culture - Final Escherichia Coli Streptococcus Viridans 05/30/17 01:48 Blood Blood Culture - Final NO GROWTH AFTER 5 DAYS 05/30/17 01:33 Blood Blood Culture - Final NO GROWTH AFTER 5 DAYS 05/30/17 01:33 Blood Gram Stain - Final TEST NOT PERFORMED Most Recent Lab Values WBC 10.9 K/uL (4.8-10.8) H 06/06/17 06:30 RBC 3.65 Mil/uL (4.40-5.90) L 06/06/17 06:30 Hgb 11.5 g/dL (12.0-18.0) L 06/06/17 06:30 Hct 33.0 % (35.0-51.0) L 06/06/17 06:30 MCV 90.3 fl (80.0-94.0) 06/06/17 06:30 MCH 31.5 pg (27.0-31.0) H 06/06/17 06:30 MCHC 34.9 g/dL (33.0-37.0) 06/06/17 06:30 RDW 12.5 % (11.5-14.5) 06/06/17 06:30 Plt Count 350 K/uL (130-400) 06/06/17 06:30 MPV 7.0 fl (7.2-11.7) L 06/04/17 10:30 Neut % (Auto) 70.6 % (50.0-75.0) 06/04/17 10:30 Lymph % (Auto) 18.3 % (20.0-40.0) L 06/04/17 10:30 [place] % (Auto) 8.2 % (0.0-10.0) 06/04/17 10:30 Eos % (Auto) 2.4 % (0.0-4.0) 06/04/17 10:30 Baso % (Auto) 0.5 % (0.0-2.0) 06/04/17 10:30 Neut # (Auto) 7.0 K/uL (1.8-7.0) 06/04/17 10:30 Lymph # (Auto) 1.8 K/uL (1.0-4.3) 06/04/17 10:30 Bandera # (Auto) 0.8 K/uL (0.0-0.8) 06/04/17 10:30 Eos # (Auto) 0.2 K/uL (0.0-0.7) 06/04/17 10:30 Baso # (Auto) 0.1 K/uL (0.0-0.2) 06/04/17 10:30 Neutrophils % (Manual) 88 % (42-75) H 05/29/17 21:13 Band Neutrophils % 4 % (0-2) H 05/29/17 21:13 Lymphocytes % (Manual) 7 % (20-50) L 05/29/17 21:13 Monocytes % (Manual) 1 % (0-10) 05/29/17 21:13 Platelet Estimate Normal (NORMAL) 05/29/17 21:13 RBC Morphology Normal (NORMAL) 05/29/17 21:13 PT 13.0 Seconds (9.8-13.1) 05/30/17 01:40 INR 1.2 (0.9-1.2) 05/30/17 01:40 APTT 27.7 Seconds (25.6-37.1) 05/30/17 01:40 Sodium 139 mmol/l (132-148) 06/06/17 06:30 Potassium 4.1 MMOL/L (3.6-5.0) 06/06/17 06:30 Chloride 101 mmol/L (98-107) 06/06/17 06:30 Carbon Dioxide 25 mmol/L (22-30) 06/06/17 06:30 Anion Gap 17 (10-20) 06/06/17 06:30 BUN 10 mg/dl (9-20) 06/06/17 06:30 Creatinine 1.0 mg/dl (0.8-1.5) 06/06/17 06:30 Est GFR ( Amer) > 60 06/06/17 06:30 Est GFR (Non-Af Amer) > 60 06/06/17 06:30 POC Glucose (mg/dL) 124 mg/dL (65-110) H 05/30/17 11:08 Random Glucose 96 mg/dL (75-110) 06/06/17 06:30 Lactic Acid 1.5 MMOL/L (0.7-2.1) 05/30/17 01:40 Calcium 9.1 mg/dL (8.4-10.2) 06/06/17 06:30 Total Bilirubin 0.5 mg/dl (0.2-1.3) 06/04/17 10:30 AST 56 U/L (17-59) 06/04/17 10:30 ALT 36 U/L (21-72) 06/04/17 10:30 Alkaline Phosphatase 32 U/L (38-126) L 06/04/17 10:30 Total Protein 6.1 G/DL (6.3-8.2) L 06/04/17 10:30 Albumin 2.9 g/dL (3.5-5.0) L 06/04/17 10:30 Globulin 3.2 gm/dL (2.2-3.9) 06/04/17 10:30 Albumin/Globulin Ratio 0.9 (1.0-2.1) L 06/04/17 10:30 Lipase 84 U/L (23-300) 05/29/17 21:13 Urine Color Yellow (YELLOW) 05/30/17 03:38 Urine Clarity Slighty-cloudy (Clear) 05/30/17 03:38 Urine pH 5.0 (5.0-8.0) 05/30/17 03:38 Ur Specific [place] > 1.060 (1.003-1.030) H 05/30/17 03:38 Urine Protein Negative mg/dL (NEGATIVE) 05/30/17 03:38 Urine Glucose (UA) Neg mg/dL (Normal) 05/30/17 03:38 Urine Ketones Negative mg/dL (NEGATIVE) 05/30/17 03:38 Urine Blood Negative (NEGATIVE) 05/30/17 03:38 Urine Nitrate Negative (NEGATIVE) 05/30/17 03:38 Urine Bilirubin Negative (NEGATIVE) 05/30/17 03:38 Urine Urobilinogen 0.2-1.0 mg/dL (0.2-1.0) 05/30/17 03:38 Ur Leukocyte Esterase Neg Aram/uL (Negative) 05/30/17 03:38 Urine RBC (Auto) < 1 /hpf (0-3) 05/30/17 03:38 Urine Microscopic WBC < 1 /hpf (0-5) 05/30/17 03:38 Ur Squamous Epith Cells < 1 /hpf (0-5) 05/30/17 03:38 Stool Occult Blood Negative (NEGATIVE) 05/30/17 01:56 Alcohol, Quantitative < 10 mg/dl (0-10) 05/29/17 21:13 Blood Type B NEGATIVE 05/30/17 10:18 Blood Type Confirm B NEGATIVE 05/30/17 13:27 Antibody Screen Negative 05/30/17 10:18 BBK History Checked No verified bt 05/30/17 10:18 - Hospital Course Hospital Course: 52 years old male with hx of HTN and Gout, came with a 6 days hx of intermittent abdominal pain. The pain is located at the LLQ then radiated across the pelvis to the right lower quadrant, becoming continuous and more severe on the day of admission. CT abdomen showed Meckel diverticulitis. Surgery consulted, started on IV Zosyn and kept NPO. Taken to OR 05/30 and underwent laparascopic resection of perforated Meckle's diverticulitis with primary anastamosis NGT in place and with large bilious output. 06/02: NGT drainage is less , + flatus and small liquid BM 06/03: d/c NGT yesterday, having liquid BM and passing gas, ambulating without difficulty. Awaiting sensitivities to cultures: EColi pansensitive, awaiting ID and sens for Gram Pos Cocci 06/04: COLBY drain serosang, doing well, comfortable. Discussed with [facility], Gm + cocci very small amt, may not be able to ID and sens. Will dscuss with Dr. Gordillo discharge planning. 06/05: stools forming, no pain, ambulating well, possible discharge tomorrow? discuss with surgery. COLBY drain yellow clear min. 06/06: doing well, pain controlled, COLBY drain pulled by surgery. Stable for discharge home with follow up PCP and Surgery team. 1.Perforated Meckel's Diverticulitis S/P laparascopic resection of part of small bowel with anastomosis Passed flatus and had small amount of BM NGT d/c 3 days ago Promote ambulation , incentive spirometry Continue IVF and Zosyn IV COLBY drain to LLQ with minimal sero sanguinous output liquid diet surgery following up closely CULTURES: EColi pansensitive, awaiting ID and sens for Gram Pos Cocci 2. Acute blood loss anemia Hgb dropped from 12.9--9.8 stable 3. History ETOH abuse no signs of withdrawal or tremors 4. Hypokalemia from GI loss - KCL 20 meq IV 4. DVT prophylaxis SCD Lovenox Discharge Exam - Head Exam Additional comments: General: awake, alert HEENT: NCAT, PERRL, EOMI HEART: RRR, S1, S2 no MRG LUNG: CTAB, no WRR ABD: soft, NT, ND, no mass, no HSM EXT: warm, well perfused NEURO: awake, alert SKIN: warm, dry PSYCH: normal mood, normal affect Discharge Plan - Discharge Medications Prescriptions: Lactobacillus Acidophilus [Acidophilus Lactobacillus] 1 cap PO BID #14 capsule Levofloxacin [Levaquin] 750 mg PO DAILY #7 tablet Lisinopril [Prinivil] 20 mg PO DAILY #30 tablet metroNIDAZOLE [Flagyl] 500 mg PO Q8 #21 tab - Follow Up Plan Condition: FAIR Disposition: HOME/ ROUTINE Instructions: Diverticulitis (DC), Small Bowel Resection (DC) Additional Instructions: follow up with primary MD and surgeon 7-10 days Referrals: Lopez Gordillo MD [Staff Provider] -
== END 2017-06-06 12:19 | disposition home or self-care (01) | DRG 329 ==
LOC: H.ER 19:54 → H.ERHOLD 05-30 01:09 → H.MEDSURG1 05-30 02:27
PROVIDERS: ADMIT Internal Medicine; ATTEND Internal Medicine
PROC: 0DNW4ZZ Release Peritoneum, Percutaneous Endoscopic Approach (ICD-10-PCS; 2017-05-30)
PROC: 0W9J40Z Drainage of Pelvic Cavity with Drainage Device, Percutaneous Endoscopic Approach (ICD-10-PCS; 2017-05-30)
PROC: 0DB84ZZ Excision of Small Intestine, Percutaneous Endoscopic Approach (ICD-10-PCS; principal; 2017-05-30 14:00)
DX: Q43.0 Meckel's diverticulum (displaced) (hypertrophic) (principal); K65.1 Peritoneal abscess; D62 Acute posthemorrhagic anemia; N30.90 Cystitis, unspecified without hematuria; E87.5 Hyperkalemia; I10 Essential (primary) hypertension; E86.0 Dehydration; M10.9 Gout, unspecified; F17.210 Nicotine dependence, cigarettes, uncomplicated; F10.10 Alcohol abuse, uncomplicated; Y90.0 Blood alcohol level of less than 20 mg/100 ml; E87.6 Hypokalemia; K66.0 Peritoneal adhesions (postprocedural) (postinfection)